=== PATIENT | male | born 1940 | race Caucasian/White ===

== ENCOUNTER 2023-10-05 18:29 | Emergency (ER) | payer OTHER, SELFPAY ==
[2023-10-05 18:32] VITALS: BP 134/81
[2023-10-05 18:57] LABS: % Basophils 0.9 % (0-2); % Eosinophils 2.1 % (0-6); % Immature Granulocytes 0.3 % (0-0.5); % Lymphocytes 24.9 % (20.5-51.1); % Monocytes 11.7 % (1.7-9.3); % Neutrophils 60.1 % (42.2-75.2); Absolute Basophils 0.1 10^3/uL (0-0.2); Absolute Eosinophils 0.2 10^3/uL (0-0.7); Absolute Lymphocytes 2.2 10^3/uL (1.2-3.4); Absolute Neutrophils 5.3 10^3/uL (1.4-6.5); Hematocrit 38.8 % (39.0-52.0); Hemoglobin 13.5 g/dL (13.0-18.0); Mean Corp Hgb Conc. 34.8 g/dL (33.0-37.0); Mean Corpuscular Hgb 31.5 pg (27.0-31.0); Mean Corpuscular Volume 90.4 fL (80.0-94.0); Mean Platelet Volume 8.7 fL (7.4-10.4); Nucleated Red Blood Cells % 0 % (-); Platelet Count 259 10^3/uL (130-400); Red Blood Cell Count 4.29 10^6/uL (4.70-6.10); Red Cell Dist. Width 13.3 % (11.5-14.5); White Blood Cell Count 8.9 10^3/uL (4.8-10.8)
[2023-10-05 19:14] LABS: ALT (SGPT) 13 U/L (0-50); AST (SGOT) 21 U/L (17-59); Alkaline Phosphatase 73 U/L (38-126); Blood Urea Nitrogen 26 mg/dl (9-20); Calcium 9.7 mg/dl (8.4-10.2); Carbon Dioxide 27 mmol/L (22-30); Chloride 101 mmol/L (98-107); Glucose 87 mg/dl (70-99); Potassium 4.4 mmol/L (3.5-5.1); Sodium 133 mmol/L (135-145); Total Bilirubin 0.8 mg/dl (0.2-1.3); eGFR > 60.00
[2023-10-05 19:26] LABS: COVID-19 Antigen Negative (Negative)
== END 2023-10-05 20:44 | disposition left against medical advice (07) ==
LOC: EMR 18:29
PROVIDERS: EMERGENCY PHYSICIAN Emergency Medicine
DX: R06.02 Shortness of breath (principal)
CPT/HCPCS: 71046; 80053; 85025; 87502; 87811; 93005

== ENCOUNTER 2024-01-30 19:37 | Inpatient (IN) | payer OTHER, SELFPAY ==
[2024-01-30] VITALS (11 sets, daily range): BP systolic 116–153; BP diastolic 80–96; PULSE 51–67; BMI 16.6
[2024-01-30 11:34] LABS: % Basophils 1.2 % (0-2); % Eosinophils 2.5 % (0-6); % Immature Granulocytes 0.2 % (0-0.5); % Monocytes 7.2 % (1.7-9.3); % Neutrophils 58.9 % (42.2-75.2); Absolute Basophils 0.1 10^3/uL (0-0.2); Absolute Eosinophils 0.2 10^3/uL (0-0.7); Absolute Lymphocytes 1.8 10^3/uL (1.2-3.4); Absolute Monocytes 0.4 10^3/uL (0.1-0.6); Absolute Neutrophils 3.5 10^3/uL (1.4-6.5); Hematocrit 39.6 % (39.0-52.0); Hemoglobin 13.9 g/dL (13.0-18.0); Mean Corp Hgb Conc. 35.1 g/dL (33.0-37.0); Mean Platelet Volume 9.1 fL (7.4-10.4); Nucleated Red Blood Cells % 0 % (-); Platelet Count 166 10^3/uL (130-400); Red Blood Cell Count 4.35 10^6/uL (4.70-6.10); Red Cell Dist. Width 14.6 % (11.5-14.5); White Blood Cell Count 5.9 10^3/uL (4.8-10.8)
[2024-01-30 11:52] LABS: ALT (SGPT) 24 U/L (0-50); AST (SGOT) 42 U/L (17-59); Albumin 4.3 g/dl (3.5-5.0); Alkaline Phosphatase 55 U/L (38-126); Blood Urea Nitrogen 24 mg/dl (9-20); Calcium 10.4 mg/dl (8.4-10.2); Carbon Dioxide 24 mmol/L (22-30); Chloride 103 mmol/L (98-107); Glucose 94 mg/dl (70-99); Potassium 4.1 mmol/L (3.5-5.1); Sodium 137 mmol/L (135-145); Total Bilirubin 0.9 mg/dl (0.2-1.3); Total Protein 6.9 g/dl (6.3-8.2); eGFR > 60.00
--- NOTE | 2024-01-30 14:09 | ED.GENMED ---
History of Present Illness
<Candi Escalante PA-C - Last Filed: 01/30/24 22:02>
General
Chief Complaint: Dehydration Symptoms
Source: patient
Exam Limitations: none
Time Seen by Provider: 01/30/24 13:18
Nursing documentation reviewed up to this point in time: agreed with
History of Present Illness
History of Present Illness:
83 y/oM
coming from home with
HLD, COPD, still smokes, hypothyroid
here with gnrealized weakness, dec appetite, dec oral intake, x 6 weeks
pt apparently fell 6 weeks ago while in the basement with son, backwards onto back, no head strike, was helped up and felt ok. but he has had a decline since. isn't really eating well, isn't drinking liquids, sleeps a lot, now is useing a cane.
when asked why he needs the cane he cannot quite articulate why. he initially said 'i can't walk without it' but isn't describing focal weakness or pain or dizziness or balance problems
he fell again 1 week ago outside and did hit his head then
no LOC
no thinners
followed by cards at [facility] but has never had any cardiac intervention/stress test
isn't sure why he has seen cards
pt has probably had some weight loss
says she decided to bring him today jung hansen really doesn't know what to do for him any mroe and is upset watching him stop eating/drinking well
pt has no back pain, fever, chills, burning with urination, vomiting, headache, dizziness, neck pain, chest pain
when asked if he feels SOB
he says he doesn't notice it
Past History
<Candi Escalnate PA-C - Last Filed: 01/30/24 22:02>
Past History
ED Past Medical History: COPD, Hypercholesterolemia, Hypothyroidism and Other (Nose bleed)
Patient has exhibited threatening behavior?: No
Social History
Tobacco: Smoker
Alcohol: None
Drug: None
Personal:
Living: with family
Employment: Retired
Review of Systems
<Candi Escalante PA-C - Last Filed: 01/30/24 22:02>
Review of Systems
Allergies reviewed?: Yes
All Other Systems: Not applicable
Phy Exam
<Candi Escalante PA-C - Last Filed: 01/30/24 22:02>
Physical Exam
Physical Exam:
GENERAL: Alert , in no apparent distress thin, appears malnourished
EYE: pupils equal and reactive
NECK: Supple
ENT: o/p clr, mmm.
CARDIAC: Irregular, bradycardic in the 50s
LUNGS: Mild dyspnea with very little exertion, no rales, no rhonchi, no wheezing, no cough
ABDOMEN: Soft, flat without focal tenderness, no r/g, no cvat, normal bowel sounds
NEUROLOGICAL: Alert and oriented, no focal neuro deficits, full strength and sensation distally, able to get up and ambulate with a cane, does not always seem to need to use a cane but picks it up and shuffles his gait
SKIN: Warm and dry, skin intact.
MUSCULOSKELETAL: No edema, well perfused. neg delbert's sign
PSYCH: Normal and appropriate interaction.
Course
<Candi Escalante PA-C - Last Filed: 01/30/24 22:02>
Orders/Labs/Results
Orders:
Orders
01/30/24 11:09
Electrocardiogram (*1) Urgent
Reason for Study: Fatigue / Weakness
EKG- Treatment ONCE
01/30/24 11:18
Complete Blood Count/With Diff Urgent
Comprehensive Metabolic Panel Urgent
Free T4 Urgent
TSH Reflex To Free T4 Urgent
Comment: TSH REFLEX ADDED ON BY FLOOR 2PM 7-8-24
01/30/24 14:05
CT Head W/o Iv Contrast Urgent
Comment:
Reason For Exam: fall 1 week ago, weak
0.9% Sodium Chloride 500 ml [Nss] 500 ml IV BOLUS
01/30/24 14:06
CR Chest - 2 Views Urgent
Comment:
Reason For Exam: copd, sob
01/30/24 14:07
Add On- LAB Urgent
Tests Added?: tsh reflex t4
01/30/24 14:20
NT-proBNP Urgent
Troponin I Urgent
01/30/24 Dinner
IDDSI 4 - Pureed
At Your Request: Limited Participation
01/30/24 15:38
Case Management Consult ONCE
Case Management Consult: Discharge Planning
Pt Eval And Treat Urgent
Activity Level: Ambulate
01/30/24 17:13
EKG [Electrocardiogram (*1)] Urgent
Reason for Study: Bradycardia / Tachycardia
01/30/24 17:14
EKG- Treatment ONCE
01/30/24 18:35
Admit/Transfer Patient As Directed
Co-Sign Provider:
Level of Care: Inpatient admission
Assign to:: Telemetry
Physician / Group: Hospitalist
Diagnosis: Weakness
Reason for Telemetry: Arrhythmia
Date to Stop Telemetry: 02/02/24
Time to Stop Telemetry: 11:00
Reason for Hospitalization: .
Expected length of stay greater than two midnights?: Yes
ELOS- Estimated Length of Stay in days: 3
I certify the patient meets the requirements for IP care: Yes
01/30/24 18:39
Code Status As Directed
Resuscitation Status: Full Code
01/30/24 19:08
Urinalysis Reflex To Culture Urgent
Date Specimen was Collected: 01/30/24
Time Specimen was Collected: 11:11
Urine Microscopic Reflex Cult Urgent
01/30/24 19:39
Dextrose 5%/0.9%Sodchl 1000 ml [D5/0.9% Sodium Chloride] 1,000 ml IV 100 mls/hr
Nicotine [Nicoderm Transdermal] 14 mg TRANSDERM DAILY
01/30/24 19:39
Consult Cardiology [CARDIOLOGY CONSULT] Routine
Consulting Provider: Audra Mortensen
Was physician already notified: Yes
Reason for consult: Bradycardia
Pt Eval And Treat Routine
Activity Level: Ambulate
Speech Therapy Eval & Treat Routine
DX Deep Vein Thrombosis Video Routine
01/30/24 20:00
Heparin 5,000 units SC Q12
01/31/24 06:00
Levothyroxine [Synthroid] 112 mcg PO DAILY @ 0600
02/02/24 11:00
DC Protocol for Telemetry ONCE
Abnormal Lab Results
01/30/24 01/30/24
11:18 19:08
RBC 4.35 L 10^6/uL
(4.70-6.10)
MCH 32.0 H pg
(27.0-31.0)
RDW 14.6 H %
(11.5-14.5)
BUN 24 H mg/dl
(9-20)
Calcium 10.4 H mg/dl
(8.4-10.2)
TSH (Reflex) 54.00 H uIU/ml
(0.47-4.68)
Free T4 0.41 L ng/dl
(0.78-2.19)
Urine Ketones Trace A
(Negative)
Urine Bilirubin 1+ A
(Negative)
Leukocyte Esterase Rfl Trace A
(Negative)
01/30/24 11:18
01/30/24 11:18
Vital Signs
Initial and Last Documented VS:
Initial Vital Signs
Temp Pulse Resp BP Pulse Ox
97.5 F 76 16 153/85 98
01/30/24 11:06 01/30/24 11:06 01/30/24 11:06 01/30/24 11:06 01/30/24 11:06
Last Documented Vital Signs
Temp Pulse Resp BP Pulse Ox
97.8 F 46 16 151/80 96
01/30/24 20:06 01/30/24 20:06 01/30/24 20:06 01/30/24 20:06 01/30/24 20:06
<Bryce Herrera MD - Last Filed: 01/30/24 22:08>
Orders/Labs/Results
Orders:
Orders
01/30/24 11:09
Electrocardiogram (*1) Urgent
Reason for Study: Fatigue / Weakness
EKG- Treatment ONCE
01/30/24 11:18
Complete Blood Count/With Diff Urgent
Comprehensive Metabolic Panel Urgent
Free T4 Urgent
TSH Reflex To Free T4 Urgent
Comment: TSH REFLEX ADDED ON BY FLOOR 2PM 01-30-24
01/30/24 14:05
CT Head W/o Iv Contrast Urgent
Comment:
Reason For Exam: fall 1 week ago, weak
0.9% Sodium Chloride 500 ml [Nss] 500 ml IV BOLUS
01/30/24 14:06
CR Chest - 2 Views Urgent
Comment:
Reason For Exam: copd, sob
01/30/24 14:07
Add On- LAB Urgent
Tests Added?: tsh reflex t4
01/30/24 14:20
NT-proBNP Urgent
Troponin I Urgent
01/30/24 Dinner
IDDSI 4 - Pureed
At Your Request: Limited Participation
01/30/24 15:38
Case Management Consult ONCE
Case Management Consult: Discharge Planning
Pt Eval And Treat Urgent
Activity Level: Ambulate
01/30/24 17:13
EKG [Electrocardiogram (*1)] Urgent
Reason for Study: Bradycardia / Tachycardia
01/30/24 17:14
EKG- Treatment ONCE
01/30/24 18:35
Admit/Transfer Patient As Directed
Co-Sign Provider:
Level of Care: Inpatient admission
Assign to:: Telemetry
Physician / Group: Hospitalist
Diagnosis: Weakness
Reason for Telemetry: Arrhythmia
Date to Stop Telemetry: 02/02/24
Time to Stop Telemetry: 11:00
Reason for Hospitalization: .
Expected length of stay greater than two midnights?: Yes
ELOS- Estimated Length of Stay in days: 3
I certify the patient meets the requirements for IP care: Yes
01/30/24 18:39
Code Status As Directed
Resuscitation Status: Full Code
01/30/24 19:08
Urinalysis Reflex To Culture Urgent
Date Specimen was Collected: 01/30/24
Time Specimen was Collected: 11:11
Urine Microscopic Reflex Cult Urgent
01/30/24 19:39
Dextrose 5%/0.9%Sodchl 1000 ml [D5/0.9% Sodium Chloride] 1,000 ml IV 100 mls/hr
Nicotine [Nicoderm Transdermal] 14 mg TRANSDERM DAILY
01/30/24 19:39
Consult Cardiology [CARDIOLOGY CONSULT] Routine
Consulting Provider: Audra Mortensen
Was physician already notified: Yes
Reason for consult: Bradycardia
Pt Eval And Treat Routine
Activity Level: Ambulate
Speech Therapy Eval & Treat Routine
DX Deep Vein Thrombosis Video Routine
01/30/24 20:00
Heparin 5,000 units SC Q12
01/31/24 06:00
Levothyroxine [Synthroid] 112 mcg PO DAILY @ 0600
02/02/24 11:00
DC Protocol for Telemetry ONCE
Abnormal Lab Results
01/30/24 01/30/24
11:18 19:08
RBC 4.35 L 10^6/uL
(4.70-6.10)
MCH 32.0 H pg
(27.0-31.0)
RDW 14.6 H %
(11.5-14.5)
BUN 24 H mg/dl
(9-20)
Calcium 10.4 H mg/dl
(8.4-10.2)
TSH (Reflex) 54.00 H uIU/ml
(0.47-4.68)
Free T4 0.41 L ng/dl
(0.78-2.19)
Urine Ketones Trace A
(Negative)
Urine Bilirubin 1+ A
(Negative)
Leukocyte Esterase Rfl Trace A
(Negative)
01/30/24 11:18
01/30/24 11:18
Vital Signs
Initial and Last Documented VS:
Initial Vital Signs
Temp Pulse Resp BP Pulse Ox
97.5 F 76 16 153/85 98
01/30/24 11:06 01/30/24 11:06 01/30/24 11:06 01/30/24 11:06 01/30/24 11:06
Last Documented Vital Signs
Temp Pulse Resp BP Pulse Ox
97.8 F 46 16 151/80 96
01/30/24 20:06 01/30/24 20:06 01/30/24 20:06 01/30/24 20:06 01/30/24 20:06
<Candi Escalante PA-C - Last Filed: 01/30/24 22:02>
MDM/Problems Addressed
Differential Diagnosis Includes:
symptomatic bradycardia, hypothyroid, generalized wekaneass, uti, depression
MDM/Problems Addressed:
83 y/o M hypothyroid, copd, hld; says he is compliant with meds,, chronic dysphagia drinks liquisd only
5-6 weeks gen fatigue, 2 falls (turns out the 2nd one 1 week ago was syncope that he didn' tell me initially)
not drinking usual amout of fluids, sleeping more
hr 40s sinus qian 1st degree av block, normal bp
neuro itnact
ambulates with cane fairly well, no ataxia, no focal weakness
orthos slightly positive with HR elevation of 20 points with standing but pt wasn't symptomatic, mild BUn elevation; treated with IV fluids
i had pt eval and they had recommneded some home care
i was going to send home but while i was in with the patient, he had several minutes of his hr was in the 30s
TSH resulted at 54
it had previously been 1.5 in april, according to dr. niño his PCP whom i spoke to
; i spoke with endo who didn't think he was taking med appropriately and not to inc the dose becuase this was appropriate for his low weight; shipyard helper dr. mortensen also made aware, with the questionnable syncope history, he recommended the
patient should probably stay overnight for tele
pt agreeable
seen by ed attending dr. herrera
<Candi Escalante PA-C - Last Filed: 01/30/24 22:02>
*Critical Care Note
Total Time (30-74mins, 75-104mins- exclusive of procedures): Not Applicable
ED Attending Note
<Candi Escalante PA-C - Last Filed: 01/30/24 22:02>
-
Portions of this chart may have been created with voice recognition software.� Occasional wrong word or��sound alike� substitutions may have occurred due to the inherent limitations of voice recognition software.
<Bryce Herrera MD - Last Filed: 01/30/24 22:08>
ED Attending Note
Patient seen and examined by attending physician: Yes
ED Attending Note:
Patient with history of hypothyroidism on levothyroxine, presents ED for evaluation secondary to progressively worsening generalized weakness, which seems to have started after he fell in his driveway 2 weeks ago. Patient reports that he may have
passed out. Denies preceding palpitations, dizziness or shortness of breath. Denies previous history of syncope. In addition, per spouse, patient has had decreased appetite and poor intake, along with not drinking enough water at home. Spouse
feels as though patient may be dehydrated. Patient denies headache. Denies loss of sensation or weakness.
Physical Exam
General: no apparent distress, not acutely ill. afebrile. weak appearing
Head: nc/at. eomi
Neck: supple. no meningeal signs.
Heart: s1/s2 regular rate and rhythm, no murmur. equal radial pulses.
Lungs: no acute respiratory distress. clear bilaterally
Abdomen: normal bowel sounds. not tender.
Neuro: alert and oriented. no focal neurological deficits
Skin: no rash
Psychiatric: well kept. interactive and cooperative
Extremities: no edema. no calf tenderness.
History and exam concerning for dehydration, likely secondary from poor oral intake. Blood work is remarkable for increased TSH level as well as decreased free T4 level, which may be contributing to patient's bradycardia noted on the monitor.
Patient will be admitted for further evaluation and treatment, on telemetry, with continue IV hydration. Patient may require cardiology consultation, if bradycardia persists, as there is frequent episodes of bradycardia into the 30s and low 40s.
Discharge Plan
Departure
Patient Disposition: Admit
Date of Disposition: 01/30/24
Time of Disposition: 17:42
Admit to: Telemetry
Presentation/result/management discussed w/ accepting MD/DO: Hospitalist
Condition: Fair
Covid-19: Not Applicable
Discharge Problem:
Weakness, Syncope, Symptomatic bradycardia, Hypothyroid
Interventions
Interventions:
*Risk Screen - Suicide Last Done: 01/30/24 13:36
*General Assessment Last Done: 01/30/24 13:36
*Neglect/Abuse Screening Last Done: 01/30/24 13:36
*ED COVID-19 Vaccine History Last Done: 01/30/24 13:36
*Nursing Disposition Last Done: 01/30/24 19:26
ED- Cardiac Assessment Last Done: 01/30/24 13:41
ED- Neurological Assessment Last Done: 01/30/24 13:41
ED- Pulmonary Assessment Last Done: 01/30/24 13:41
Discharge Date and Time
Discharge Date/Time: 01/30/24 19:27
[2024-01-30 14:55] LABS: NT-proBNP 345 pg/ml; Troponin I < 0.012 ng/ml
[2024-01-30] MEDS: NSS 500 IV (14:55)
--- NOTE | 2024-01-30 16:34 | CM ---
Addendum entered by Candice Sims 01/30/24 17:12:
Patient chose [facility]. Bedside RN and PAValentina updated.
Original Note:
CM reviewed chart. Introduced self and role to patient and . Spoke with patient and at bedside. PT at bedside evaluating patient. PT recommending [facility]. Patient and agreeable to this.
shared patient has been declining for 6 weeks, after a fall. He has now been needing to utilize a cane for the last 2 weeks.
Referrals placed to [facility] and [facility].
[2024-01-30 17:07] LABS: Free T4 0.41 ng/dl (0.78-2.19)
--- NOTE | 2024-01-30 17:56 | HPS.HSE ---
Family Physician
-
Family Physician: Robyn Saunders
Chief Complaint
-
Weakness for a few weeks duration
History of Present Illness
83 years old male came from home. Patient is accompanied by his . He reported weakness and declining health at home. Per , weakness was going on for more than 2 weeks. She could not get appointment with primary care physician and
brought him to the hospital. Patient has history of fall 2 weeks ago, was reported as syncopal episode but he denied loss of consciousness. He sustained a cut in his hand from it. He described it as loss of control in the driveway and falling but
he later was able to get up and go back inside the house.
Patient has a chronic dysphagia on a pur�ed diet. Diminished intake. His TSH was elevated and patient said he might have skipped doses.
Primary care doctor was contacted and reported normal TSH recently but possibility of missing doses.
Medical History
Past Medical History
Past Medical History: Reports Other (Hypothyroidism, history of hyperlipidemia, COPD, chronic dysphagia)
Past Surgical History: Reports Other (No recent major surgery)
Social History
Tobacco: Smoker (Smokes 3 to 4 cigarettes a day)
Alcohol: None
Personal:
Living: With Family
Employment: Retired
Family History
Family History: Other (His father had same dysphagia problem)
Allergies / Home Medications
Allergies reflects when Allergies were last updated in [employer].
Home Medications with original date entered in [employer]
Allergy/Medication List:
Allergies
Allergy/AdvReac Type Severity Reaction Status Date / Time
Sulfa (Sulfonamide Allergy childhood Verified 01/30/24 11:08
Antibiotics)
Home Medications
fluticasone fur. 100 mcg-umeclid 62.5 mcg-vilant 25 mcg inhalat.powder (Trelegy Ellipta) 1 inh inhalation R DAILY 01/30/24
levothyroxine 112 mcg tablet 112 mcg PO DAILY 01/30/24
Review of Systems
-
History Source: Patient
A 12 point ROS was completed and negative except as noted: Yes
Constitutional: Reports Fatigue; Denies Fever or Chills
EENT: Denies Sore Throat
Respiratory: Denies Trouble Breathing
Cardiac: Denies Chest Pain
Abdomen/GI: Reports Constipated and Anorexia; Denies Abdominal Pain
: Denies Dysuria or Frequency
Musculoskeletal: Denies Joint Pain or Joint Swelling
Neurological: Reports Weakness
Hematologic/Lymphatic: Denies Bruising
Psych: Reports Calm; Denies Panic Disorder
Physical Exam
Vital Signs
Vital Signs
Temp Pulse Resp BP Pulse Ox
97.5 F 45 17 133/85 96
01/30/24 11:06 01/30/24 17:15 01/30/24 17:15 01/30/24 16:07 01/30/24 17:15
Physical Exam
General: No Apparent Distress, Comfortable and Appears Chronically Ill
HEENT: Anicteric and Moist mucous membranes
Respiratory: Decreased Breath Sounds
Cardiac: S1/S2 and Bradycardia
GI: Soft, Non Tender and Non Distended
Rectal: No Maroon Stools
Genito-urinary: No costovertebral tender
Musculoskeletal: No Clubbing, No Cyanosis and No Edema
Skin: No Jaundice
Neuro: AO x 3
Psych: Calm
Laboratory Results
-
01/30/24 11:18
01/30/24 11:18
Laboratory Results
Total Bilirubin 0.9 mg/dl (0.2-1.3) 01/30/24 11:18
AST 42 U/L (17-59) 01/30/24 11:18
ALT 24 U/L (0-50) 01/30/24 11:18
Alkaline Phosphatase 55 U/L (38-126) 01/30/24 11:18
Troponin I < 0.012 ng/ml 01/30/24 14:20
Impression/Plan
-
83 years old male presented with history of failure to thrive, progressive weakness
# Generalized weakness/progressive weakness with mobility dysfunction/failure to thrive over the last few weeks/months
No acute decline but progressive decline
Differential diagnosis is broad. No fever or pain issue. Patient was ability to walk independently over the last few weeks. History of progressive dysphagia, takes pur�ed/liquid diet at home but currently he is reporting anorexia.
Scan of the head showed moderate small vessel disease with moderate atrophy, no acute intracranial abnormality.
# Sinus bradycardia.
Admit to telemetry
Generally he is asymptomatic with good blood pressure. I suspect a chronic issue.
Patient sees [facility]. No chest pain. Negative troponin. EKG sinus bradycardia first-degree AV block /Right bundle branch block
Chest x-ray no active disease.
Will try to get records from primary sound tester.
This could be precipitated by metabolic abnormality with high TSH and hypothyroidism
Will place patient back on Synthroid and monitor on telemetry. He is not on antiarrhythmic/tim blockade agents
Consult cardiology, appreciate help
# Hypothyroidism, uncontrolled. Possibility of missing doses. Will resume Synthroid.
Patient was not taking his Synthroid on empty stomach.
# Chronic dysphagia
Family history of dysphagia/esophageal motility disorder
Patient was pursuing testing but he declined further testing. He is on pur�ed diet with declining appetite and intake
Will consult speech therapist.
Patient is not interested in doing further GI workup or testing
# Cachexia, severe protein calorie malnutrition. Patient showing signs of muscle atrophy with temporal wasting
Consult electrical equipment technician
Consult PT/OT
# History of tobacco use, he is on Trelegy, possible COPD
Will do nicotine patch
# CODE STATUS, patient wants to remain full code
Total time spent to see the patient, examine the patient, review data and lab results, and discuss the treatment plan with patient, his , ER doctor, and nurse around 75 minutes
[2024-01-30 19:16] LABS: Urine Albumin Trace (Neg - Trace); Urine Bilirubin 1+ (Negative); Urine Character Clear (Clear); Urine Color Yellow; Urine Glucose Negative (Negative); Urine Ketone Trace (Negative); Urine Leukocyte Trace (Negative); Urine Nitrite Negative (Negative); Urine Occult Blood Negative (Negative); Urine Urobilinogen 1+ (Neg - 1+)
[2024-01-30 20:29] LABS: Urine Calcium Oxalate Crystals Present
[2024-01-30 20:30] LABS: Urine Mucus Moderate; Urine Red Blood Cell 0-2 /HPF (0-2)
[2024-01-30] MEDS: D5/0.9% SODIUM CHLORIDE 1000 IV (20:33)
[2024-01-30] MEDS: NICODERM TRANSDERMAL TRANSDERM ×2 (20:34→20:39)
[2024-01-30] MEDS: HEPARIN 5000 UNITS SC (20:34)
[2024-01-31 03:36] VITALS: BP 133/80
[2024-01-31] MEDS: SYNTHROID 112 MCG PO (05:28)
[2024-01-31 07:38] VITALS: BP 143/78
--- NOTE | 2024-01-31 08:39 | CON.CAR ---
Addendum entered and electronically signed by Clayton Guerra DO 01/31/24 12:49:
I saw and examined the patient.
The Machine [employer] Etcher's note was reviewed and I agree with the note.
Comment:
Plan:
Bradycardia may be exacerbated by his hypothyroidism. Continue to correct hypothyroidism and monitor heart rate.
May consider an outpatient monitor.
Check echocardiogram to evaluate for structural heart disease. Last echo from 2020.
Records received from [facility].
Continue to monitor orthostatic vital signs which have been negative.
No indication for PPM at this time
HPI: Patient came to [facility] yesterday with generalized weakness and cardiology has been consulted for sinus bradycardia. Patient says that his brought him in because he has been weak for weeks and he doesn't want to eat. Patient reports a h/o
trouble swallowing and that he has always been a thin man, but has lost more weight recently. He says that he cannot eat solid food and that his purees food for him. His BMI is 16.6 and weight is down 10-15 lbs in the last 2 years. Patient says
that his father had a similar problem with swallowing and lost weight as he got older and patient's daughter is now having similar problems. Patient reports attempting a work-up for muscular disorder years ago, but he became frustrated and walked
out without completing testing. Since then patient has been on the pureed diet. 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 Malin at [facility]. He had a echo as noted above. He
wore a CardioNet monitor in 2020 as well that showed sinus rhythm, sinus bradycardia and PACs, but no high degree block or pauses. 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
64. He does not take any AV tim blockers. Patient fell at home 6 weeks ago and since then has been failing. No reported syncope, but generally weak. He also says he has no appetite and has lost more weight. brought patient to [facility] yesterday
because she felt he was failing. In [facility] his TSH was high and free T4 was low, he reports missing doses of levothyroxine and when he does take a dose of levothyroxine he takes it with food.
Original Note:
Consultation
Consultation Request
Date/Time Consultation Requested: 01/30/24 at 1939
Date/Time Consultation Performed: 01/31/24 at 0839
Requesting Provider: Dr. Corey
Performing Provider: Dr. Guerra
Reason for Consultation: Bradycardia
Medical History
-
History of Present Illness:
Patient came to [facility] yesterday with generalized weakness and cardiology has been consulted for sinus bradycardia. Patient says that his brought him in because he has been weak for weeks and he doesn't want to eat. Patient reports a h/o trouble
swallowing and that he has always been a thin man, but has lost more weight recently. He says that he cannot eat solid food and that his purees food for him. His BMI is 16.6 and weight is down 10-15 lbs in the last 2 years. Patient says that
his father had a similar problem with swallowing and lost weight as he got older and patient's daughter is now having similar problems. Patient reports attempting a work-up for muscular disorder years ago, but he became frustrated and walked out
without completing testing. Since then patient has been on the pureed diet. 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 Malin at [facility]. He had a echo as noted above. He wore
a CardioNet monitor in 2020 as well that showed sinus rhythm, sinus bradycardia and PACs, but no high degree block or pauses. 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 He
does not take any AV tim blockers. Patient fell at home 6 weeks ago and since then has been failing. No reported syncope, but generally weak. He also says he has no appetite and has lost more weight. brought patient to [facility] yesterday because
she felt he was failing. In [facility] his TSH was high and free T4 was low, he reports missing doses of levothyroxine and when he does take a dose of levothyroxine he takes it with food.
PMH:
Sinus bradycardia
First degree AVB
LAFB
RBBB
h/o syncope 2020
Hypothyroid
Past Medical History
Past Medical History: Other (in HPI)
Past Surgical History: Other (hernia repair)
Social History
Tobacco: Smoker
Alcohol: None
Drug: None
Personal:
Living: With Family
Family History
Family History: Other (nonspecific, undiagnosed muscle disease with symptoms of dysphagia and generalized weakness in father and now his daughter, patient walked out on work-up years ago)
Allergies / Home Medications
Allergy/AdvReac Type Severity Reaction Status Date / Time
Sulfa (Sulfonamide Allergy childhood Verified 01/30/24 11:08
Antibiotics)
�Medication �Instructions �Recorded �Confirmed �Type
fluticasone fur. 100 mcg-umeclid 1 inh inhalation R DAILY 01/30/24 01/30/24 History
62.5 mcg-vilant 25 mcg
inhalat.powder (Trelegy Ellipta)
levothyroxine 112 mcg tablet 112 mcg PO DAILY 01/30/24 01/30/24 History
Review of Systems
-
History Source: Patient
All other systems: Negative unless noted
Physical Exam
Vital Signs
Temp Pulse Resp BP Pulse Ox
98.4 F 54 28 143/78 97
01/31/24 07:38 01/31/24 07:38 01/31/24 07:38 01/31/24 07:38 01/31/24 07:38
GEN: NAD. AAOx3, frail appearing and cachectic
HEENT: EOMI, MMM
LUNGS: CTA B/L, no wheezes or rales
CV: Reg, slow, S1/S2, no murmur
ABD: soft, BS+, NT, ND
EXT: No clubbing, cyanosis, lesions or edema B/L
NEURO: Gross non-focal
SKIN: Warm, dry and pink. No rash
Lab Results
01/30/24 11:18
01/30/24 11:18
Troponin I < 0.012 ng/ml 01/30/24 14:20
Oxc-H-Bncsxbwhlqm Pept 345 pg/ml 01/30/24 14:20
Impression / Plan
-
PCP: Dr. Robyn Saunders in [place]
Cardiology: Dr. Malin at [facility] [phone]
Impression:
Generalized weakness, weight loss and failure to thrive
Sinus bradycardia
First degree AVB
LAFB
RBBB
h/o syncope 2020
Hypothyroid, undertreated
Echo 2020: normal EF, mild TR, mildly dilated aorta
Plan:
-Patient came to [facility] yesterday with generalized weakness and cardiology has been consulted for sinus bradycardia. Patient says that his brought him in because he has been weak for weeks and he doesn't want to eat. Patient reports a h/o trouble
swallowing and that he has always been a thin man, but has lost more weight recently. He says that he cannot eat solid food and that his purees food for him. His BMI is 16.6 and weight is down 10-15 lbs in the last 2 years. Patient says that
his father had a similar problem with swallowing and lost weight as he got older and patient's daughter is now having similar problems. Patient reports attempting a work-up for muscular disorder years ago, but he became frustrated and walked out
without completing testing. Since then patient has been on the pureed diet. 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 Malin at [facility]. He had a echo as noted above. He wore
a CardioNet monitor in 2020 as well that showed sinus rhythm, sinus bradycardia and PACs, but no high degree block or pauses. 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 He
does not take any AV tim blockers. Patient fell at home 6 weeks ago and since then has been failing. No reported syncope, but generally weak. He also says he has no appetite and has lost more weight. brought patient to [facility] yesterday because
she felt he was failing. [facility] his TSH was high and free T4 was low, he reports missing doses of levothyroxine and when he does take a dose of levothyroxine he takes it with food.
-Called primary hourly sign language interpreter for records, records received and reviewed as above. Patient with known first degree AVB, RBBB and LAFB. He last wore a CardioNet monitor in 2020 and no pauses or high degree heart block at that time. Patient does not
take any AV tim blockers. ECG and tele reviewed by me and patient with sinus bradycardia and PACs, no high grade block and no significant pauses. Suspect bradycardia is chronic, but perhaps acutely worse with undertreated hypothyroidism.
-Hospitalist attending is addressing hypothyroidism and patient has been educated on the need to take levothyroxine on an empty stomach.
-Check echo, last echo was 2020.
-He is not orthostatic by VS
-No indication for PPM.
[2024-01-31] MEDS: HEPARIN 5000 UNITS SC ×2 (09:00→19:09)
[2024-01-31] MEDS: NICODERM TRANSDERMAL 14 MG TRANSDERM (09:00)
[2024-01-31] MEDS: D5/0.9% SODIUM CHLORIDE 1000 IV (09:24)
--- NOTE | 2024-01-31 09:45 | PTOTSP ---
ST Acute Care Evaluation
Pt currently presents with suspected moderately-severe oropharyngeal dysphagia of unknown origin. Pt has signifciant difficulties initiating swallows for both liquids and solids (more difficulties with solids than liquids). Pt also demonstrated
inconsistent airway protection with ingestion of liquids as illustrated by weak, wet coughing.
Recommendations:
- Continue with pureed solids, thin liquids, meds crushed in liquid or puree (pt preference).
- General aspiration precautions: HOB upright for ALL PO intake, small bites/sips, multiple swallows per trial, take breaks.
- VFSS for more information regarding extent of dysphagia.
- SPECIAL [employer]ENT [employer] will continue to follow and provide updated recommendations pending VFSS results.
--- NOTE | 2024-01-31 11:04 | W.PN.HOSP.TC ---
Today's Communication/Plan
-
f/w PT/OT/ Speech recommendations
c/w oral Synthroid
Monitor on telemetry, get records form [facility]
Assessment / Plan
Assessment / Plan
Physical Exam
General: No Apparent Distress, Comfortable and Appears Chronically Ill
HEENT: Anicteric and Moist mucous membranes
Respiratory: Decreased Breath Sounds
Cardiac: S1/S2 and Bradycardia
GI: Soft, Non Tender and Non Distended
Rectal: No Maroon Stools
Genito-urinary: No costovertebral tender
Musculoskeletal: No Clubbing, No Cyanosis and No Edema
Skin: No Jaundice
Neuro: AO x 3
Psych: Calm
83 years old male presented with history of failure to thrive, progressive weakness
# Generalized weakness/progressive weakness with mobility dysfunction/failure to thrive over the last few weeks/months
No acute decline but progressive decline
Differential diagnosis is broad. No fever or pain issue. Patient was ability to walk independently over the last few weeks. History of progressive dysphagia, takes pur�ed/liquid diet at home but currently he is reporting anorexia.
D/w Speech therapist, will do video swallow
Scan of the head showed moderate small vessel disease with moderate atrophy, no acute intracranial abnormality.
# Sinus bradycardia.
Stable HR around 40s
Generally he is asymptomatic with good blood pressure. I suspect a chronic issue.
Patient sees [facility]. No chest pain. Negative troponin. EKG sinus bradycardia first-degree AV block /Right bundle branch block
Chest x-ray no active disease.
Will try to get records from primary salon coordinator.
This could be precipitated by metabolic abnormality with high TSH and hypothyroidism
Placed patient back on Synthroid and monitor on telemetry. He is not on antiarrhythmic/tim blockade agents
Consult cardiology, appreciate help
# Hypothyroidism, uncontrolled. Possibility of missing doses. Will resume Synthroid.
Patient was not taking his Synthroid on empty stomach.
# Chronic dysphagia
Family history of dysphagia/esophageal motility disorder
Patient was pursuing testing but he declined further testing. He is on pur�ed diet with declining appetite and intake
For video swallow
Patient is not interested in doing further GI workup or testing
# Cachexia, severe protein calorie malnutrition. Patient showing signs of muscle atrophy with temporal wasting
Consulted head of data
Consulted PT/OT
# History of tobacco use, he is on Trelegy, possible COPD
nicotine patch
# CODE STATUS, patient wants to remain full code
Total time spent to see the patient, examine the patient, review data and lab results, and discuss the treatment plan with patient, cardiology and nurse around 55 minutes
Anticipated Discharge: 24 - 48 hours
Subjective/Interval History
-
Date of Service: January 31, 2024
No complaints
he asked if he could go home
Objective Data
-
Vital Signs:
Vital Signs
Temp Pulse Resp BP Pulse Ox
98.4 F 54 28 143/78 97
01/31/24 07:38 01/31/24 07:38 01/31/24 07:38 01/31/24 07:38 01/31/24 07:38
[2024-01-31 11:29] VITALS: BP 118/75
--- NOTE | 2024-01-31 14:11 | PTOTSP ---
Video Swallow Study
Study limited as patient accepted very small bolus sizes (1/8 tsp) with thicker consistencies (moderately thick, pudding thick, solids) due to reported fear of difficulty swallowing. Repetitive lingual rocking observed with delayed onset of what
were then functional anterior to posterior oral transfers. Pharyngeal swallow was functional. No aspiration occurred. Esophageal sweep revealed mild distal esophageal retention.
Recommend:
1. Continue diet as ordered (L4 Puree, L0 Thin Liquids)
2. Medications - crushed in puree
3. Strategies: upright to 90 degrees, small sips/bites
4. Oral care 3x daily
5. Dysphagia tx at the acute care level (to trial advanced solids with POULTRY BUYER).
6. Consider further medical work up as to etiology of dysphagia (i.e., gastroenterology consult, neuropsych consult).
7. Dietitian consult warranted.
--- NOTE | 2024-01-31 14:56 | CM ---
Chart reviewed and patient has been set up with [facility], plan is to home with spouse and [facility] visiting nurses
[place]
[phone]

Plan; Home with spouse and [facility] visiting nurses.
[2024-01-31 15:45] VITALS: BP 98/52; BMI 16.6
[2024-01-31 19:17] VITALS: BP 105/67
[2024-01-31 23:08] VITALS: BP 109/70
--- NOTE | 2024-02-01 00:26 | PTCARENOTE ---
Patient`s heart rate in 40`s, noted to briefly drop to 33-34 bpm. Heart rate did not sustain and returned to baseline HR in 40`s. Patient sleeping at this time and not symptomatic. call worker person WEDDING PLANNER made aware. Cardio consult already in place.
--- NOTE | 2024-02-01 02:48 | PTCARENOTE ---
Patient`s heart rate noted to be in the low 40`s, and dropping into the 30`s, but returns to 40`s. Pause noted on monitor is less than 2 seconds. Patient sleeping; however, patient denies symptoms when awoken. CREW BOAT OPERATOR Angelica made aware. strip placed on
chart. No new orders.
[2024-02-01 03:15] VITALS: BP 97/61
[2024-02-01] MEDS: SYNTHROID 112 MCG PO (05:35)
[2024-02-01 07:03] LABS: Hematocrit 38.7 % (39.0-52.0); Hemoglobin 13.2 g/dL (13.0-18.0); Mean Corp Hgb Conc. 34.1 g/dL (33.0-37.0); Mean Corpuscular Hgb 31.1 pg (27.0-31.0); Mean Corpuscular Volume 91.3 fL (80.0-94.0); Mean Platelet Volume 9.4 fL (7.4-10.4); Platelet Count 154 10^3/uL (130-400); Red Blood Cell Count 4.24 10^6/uL (4.70-6.10); Red Cell Dist. Width 14.6 % (11.5-14.5)
[2024-02-01 07:35] VITALS: BP 119/66
[2024-02-01 08:04] LABS: Blood Urea Nitrogen 21 mg/dl (9-20); Calcium 9.8 mg/dl (8.4-10.2); Carbon Dioxide 25 mmol/L (22-30); Chloride 106 mmol/L (98-107); Estimated Creatinine Clearance 47 ml/min; Glucose 74 mg/dl (70-99); Potassium 4.2 mmol/L (3.5-5.1); Sodium 136 mmol/L (135-145); eGFR > 60.00
[2024-02-01] MEDS: HEPARIN 5000 UNITS SC (08:29)
[2024-02-01] MEDS: NICODERM TRANSDERMAL 14 MG TRANSDERM (08:30)
--- NOTE | 2024-02-01 09:45 | W.DCSUMMARY ---
Discharge Summary
Discharge Data
Date of Admission: 01/30/24
Date of Discharge: 02/01/24
-
Pending Results: No
Hospital Course
83 years old male who presented with weakness and worsening gait dysfunction. Patient was found to have bradycardia on admission. Patient had history of swallowing difficulty and gait dysfunction. Patient and his reported that patient was
on mechanical soft/pur�ed diet home for long time. Patient followed with gastroenterology in the past. He was found to have sinus bradycardia. Cardiology was consulted. Echocardiogram showed normal left ventricular ejection fraction with no
significant valvular disease, dilated ascending aorta at 4.2 cm. Patient followed with [facility] and he wanted to continue seeing his defensive line coach upon discharge. Photographer Helper recommended to continue to treat hypothyroidism. Patient was
counseled regarding taking his medication Synthroid regularly and on empty stomach. His thyroid-stimulating hormone was elevated and his Synthroid dose was slightly increased. Patient was advised to follow with his family doctor to repeat thyroid
hormone level in 4 to 6 weeks. He did not have chest pain or hypotension. He was evaluated by physical therapy and recommended home health services. Patient was seen by speech therapist and he had video swallow. Speech therapist recommended to
continue thin liquids and pur�ed diet and to crush medications if possible. Dietitian was consulted. Patient remained hemodynamically stable and was discharged home in a stable condition.
Physical Exam
General: No Apparent Distress, Comfortable and Appears Chronically Ill
HEENT: Anicteric and Moist mucous membranes
Respiratory: Decreased Breath Sounds
Cardiac: S1/S2 and Bradycardia
GI: Soft, Non Tender and Non Distended
Rectal: No Maroon Stools
Genito-urinary: No costovertebral tender
Musculoskeletal: No Clubbing, No Cyanosis and No Edema
Skin: No Jaundice
Neuro: AO x 3
Psych: Calm
Total discharge time spent to see the patient, examine the patient, review data and lab results, and discuss the discharge plan with patient, , nurse around 65 minutes
Discharge Plan
-
Patient Disposition: Home with Home Care
Discharge Diagnosis/Procedures: Sinus bradycardia
Gait dysfunction
Hypothyroidism, we increased dose of Synthroid ( take it every morning on empty stomach).
Diet: Grind all food
Referrals:
Robyn Saunders MD [Family Provider] - in one to two weeks
Prescriptions:
New
levothyroxine [Synthroid] 125 mcg tablet
125 mcg PO DAILY Qty: 30 0RF
Continued
Trelegy Ellipta 100-62.5-25 mcg blister with device
1 inh INHALATION R DAILY
Discontinued
levothyroxine 112 mcg tablet
112 mcg PO DAILY
Discharge Orders:
Discharge Patient (As Directed); Ordered 02/01/24
Ordered By: Jeannette Corey
Discharge Date and Time
Print Language: FAROESE
--- NOTE | 2024-02-01 10:38 | W.PN.CARDCBS ---
Addendum entered and electronically signed by Ishan Tilley MD 02/01/24 10:57:
I saw and examined the patient.
The MATERIAL SCHEDULER or PA's note was reviewed and I agree with the note.
Comment: General: Well developed, well nourished in NAD.
Neck: Supple, no JVD, HJR, carotids +2 B/L, no bruits bilaterally.
Heart: Non displaced PMI, RRR, no murmurs, No S3, S4, no rubs.
Lungs: Scattered rhonchi
Extremities: No clubbing, cyanosis or edema bilaterally.
Neuro: Grossly nonfocal, awake, alert and oriented x3.
Stable cardiology status. No indication for pacer implant. Will sign off, call with questions. Follow-up with [facility]
Original Note:
Today's Communication / Plan
-
No indication for PPM
Impression / Plan
-
PCP: Dr. Robyn Saunders in [place]
Cardiology: Dr. Malin at [facility] [phone]
Impression:
Generalized weakness, weight loss and failure to thrive
Sinus bradycardia
First degree AVB
LAFB
RBBB
h/o syncope 2020
Hypothyroid, undertreated
Echo 2020: normal EF, mild TR, mildly dilated aorta
Echo 01/31/24: EF 64%, no WMA, no significant valve disease, ascending aorta 4.2 cm
Plan:
-Tele reviewed by me 02/01/24 and remains in sinus bradycardia with PACs, but no high grade heart block and no significant pauses. HR increases with activity
-Patient with known first degree AVB, RBBB and LAFB. He last wore a CardioNet monitor in 2020 and no pauses or high degree heart block at that time. Patient does not take any AV tim blockers. Suspect bradycardia is chronic, but perhaps acutely
worse with undertreated hypothyroidism.
-No indication for PPM
-Echo noted above showed normal EF and ascending aorta 4.2 cm, was previously described as mildly dilated by records that were requested and reviewed by me
-Hospitalist attending is addressing hypothyroidism and patient has been educated on the need to take levothyroxine on an empty stomach.
-Patient will follow up with his primary driftman, faxed records for continuity
HPI: Patient came to [facility] yesterday with generalized weakness and cardiology has been consulted for sinus bradycardia. Patient says that his brought him in because he has been weak for weeks and he doesn't want to eat. Patient reports a h/o
trouble swallowing and that he has always been a thin man, but has lost more weight recently. He says that he cannot eat solid food and that his purees food for him. His BMI is 16.6 and weight is down 10-15 lbs in the last 2 years. Patient says
that his father had a similar problem with swallowing and lost weight as he got older and patient's daughter is now having similar problems. Patient reports attempting a work-up for muscular disorder years ago, but he became frustrated and walked
out without completing testing. Since then patient has been on the pureed diet. 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 Malin at [facility]. He had a echo as noted above. He
wore a CardioNet monitor in 2020 as well that showed sinus rhythm, sinus bradycardia and PACs, but no high degree block or pauses. 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
64. He does not take any AV tim blockers. Patient fell at home 6 weeks ago and since then has been failing. No reported syncope, but generally weak. He also says he has no appetite and has lost more weight. brought patient to [facility] yesterday
because she felt he was failing. In [facility] his TSH was high and free T4 was low, he reports missing doses of levothyroxine and when he does take a dose of levothyroxine he takes it with food.
Progress Note - Axminster Weaver
Subjective
Date of Service: February 01, 2024
He says he feels at his baseline
Objective
Labs:
02/01/24 06:16
02/01/24 06:16
Labs
Hgb 13.2 g/dL (13.0-18.0) 02/01/24 06:16
Hct 38.7 % (39.0-52.0) L 02/01/24 06:16
Plt Count 154 10^3/uL (130-400) 02/01/24 06:16
Sodium 136 mmol/L (135-145) 02/01/24 06:16
Potassium 4.2 mmol/L (3.5-5.1) 02/01/24 06:16
BUN 21 mg/dl (9-20) H 02/01/24 06:16
Creatinine 0.9 mg/dL (0.7-1.3) 02/01/24 06:16
Glucose 74 mg/dl (70-99) 02/01/24 06:16
Troponins
01/30/24
14:20
Troponin I < 0.012
Vital Signs and I&O:
Vital Signs
Temp Pulse Resp BP Pulse Ox
97.9 F 49 19 119/66 95
02/01/24 07:35 02/01/24 07:35 02/01/24 07:35 02/01/24 07:35 02/01/24 07:35
Vital Signs
Temp Pulse Resp BP Pulse Ox
97.9 F 49 19 119/66 95
02/01/24 07:35 02/01/24 07:35 02/01/24 07:35 02/01/24 07:35 02/01/24 07:35
Intake & Output
01/30/24 01/31/24 02/01/24 02/02/24
06:59 06:59 06:59 06:59
Intake Total 840 / 840
Balance 840 / 840
Physical Exam
Physical Exam
GEN: AAOx3
HEENT: EOMI, MMM
LUNGS: No wheezes
CV: Sinus bradycardia on tele
ABD: ND
EXT: No edema B/L
NEURO: Gross non-focal
SKIN: No rash
[2024-02-01 11:41] VITALS: BP 147/80
--- NOTE | 2024-02-01 12:52 | CM ---
met with patient who is stable for dc home with [facility].family to transport patient.
== END 2024-02-01 12:34 | disposition home health service (06) | DRG 643 ==
LOC: 4 WEST ACU 19:37
PROVIDERS: Emergency Medicine; Physician Assistant; ADMITTING PHYSICIAN Internal Medicine; EMERGENCY PHYSICIAN Emergency Medicine; FAMILY PHYSICIAN Internal Medicine; OTHER PHYSICIAN Nuclear Medicine Nuclear Cardiology
DX: E03.9 Hypothyroidism, unspecified (principal); E43 Unspecified severe protein-calorie malnutrition; R64 Cachexia; Z68.1 Body mass index [BMI] 19.9 or less, adult
CPT/HCPCS: 70450; 71046; 74230; 80048; 80053; 81003; 81015; 83880; 84439; 84443; 84484; 85025; 85027; 92610; 92611; 93005; 93306; 99285

== ENCOUNTER 2024-03-27 10:55 | Inpatient (IN) | payer OTHER, SELFPAY ==
[2024-03-22] VITALS (12 sets, daily range): BP systolic 93–124; BP diastolic 66–93; PULSE 56; O2SAT 96; BMI 16.3; BMI 15.7
--- NOTE | 2024-03-22 13:31 | ED.GENMED ---
History of Present Illness
General
Chief Complaint: Weakness
Source: patient
Time Seen by Provider: 03/22/24 13:22
History of Present Illness
History of Present Illness:
83yoM with a history of COPD recently started on PRN oxygen, hypothyroidism, and chronic dysphagia presenting for evaluation of generalized weakness. Patient was unable to get out of bed this morning so family called EMS. He currently lives at home
with his . He states he is typically able to get out of bed and ambulates with a walker/cane. Patient has no other complaints at this time. He denies any fevers, chills, vomiting, diarrhea, chest pain, shortness of breath, abdominal pain. He was
admitted last month for generalized weakness and ambulatory dysfunction.
Past History
Past History
ED Past Medical History: COPD, Hypercholesterolemia, Hypothyroidism and Other (Nose bleed)
Patient has exhibited threatening behavior?: No
Social History
Tobacco: Smoker
Alcohol: None
Drug: None
Personal:
Living: with family
Employment: Retired
Phy Exam
Physical Exam
Physical Exam:
Cachectic elderly male in no acute distress
General Physical Exam
General Presentation: no apparent distress
General age: appears stated age
General Skin: warm and dry
General Habitus: cachetic and elderly
General Mental: alert
Cardiovascular Exam
Cardiovascular Exam: regular rate/rhythm
Pulmonary Exam
Pulmonary Exam: no respiratory distress, no rales and decreased breath sounds
Gastrointestinal Exam
Gastrointestinal Exam: non tender, soft and non distended
Neurological Exam
Neurological Exam: alert
Skin Exam
Skin Exam: normal color and warm/dry
Psychiatric Exam
Psychiatric Exam: normal mood/affect
Course
Orders/Labs/Results
Orders:
Orders
03/22/24 13:34
Urinalysis Reflex To Culture Urgent
CR Chest - 2 Views Urgent
Comment:
Reason For Exam: Generalized weakness
03/22/24 13:37
Electrocardiogram (*1) Urgent
Reason for Study: Fatigue / Weakness
EKG- Treatment ONCE
03/22/24 13:44
Complete Blood Count/With Diff Urgent
Comprehensive Metabolic Panel Urgent
TSH Reflex To Free T4 Urgent
Troponin I Urgent
03/22/24 14:31
Pt Eval And Treat Urgent
Activity Level: Out of Bed- Ad Latha
03/22/24 14:49
Case Management Consult ONCE
Case Management Consult: Discharge Planning
03/22/24 15:14
0.9% Sodium Chloride 500 ml [Nss] 500 ml IV BOLUS
Abnormal Lab Results
03/22/24
13:44
RBC 3.93 L 10^6/uL
(4.70-6.10)
Hgb 12.7 L g/dL
(13.0-18.0)
Hct 35.3 L %
(39.0-52.0)
MCH 32.3 H pg
(27.0-31.0)
Absolute Neuts (auto) 8.1 H 10^3/uL
(1.4-6.5)
Absolute Lymphs (auto) 1.0 L 10^3/uL
(1.2-3.4)
Absolute Monos (auto) 0.7 H 10^3/uL
(0.1-0.6)
Neutrophils % 81.4 H %
(42.2-75.2)
Lymphocytes % 10.3 L %
(20.5-51.1)
BUN 33 H mg/dl
(9-20)
Calcium 10.3 H mg/dl
(8.4-10.2)
Total Bilirubin 1.5 H mg/dl
(0.2-1.3)
Total Protein 6.2 L g/dl
(6.3-8.2)
03/22/24 13:44
03/22/24 13:44
Vital Signs
Initial and Last Documented VS:
Initial Vital Signs
Temp Pulse Resp BP Pulse Ox
97.3 F 61 23 97/75 94
03/22/24 13:21 03/22/24 13:21 03/22/24 13:21 03/22/24 13:21 03/22/24 13:21
Last Documented Vital Signs
Temp Pulse Resp BP Pulse Ox
98.0 F 51 18 107/73 95
03/22/24 14:53 03/22/24 15:45 03/22/24 15:45 03/22/24 14:53 03/22/24 15:15
MDM/Problems Addressed
Differential Diagnosis Includes:
83yoM here with generalized weakness. He was unable to get out of bed today. Hx of COPD. He is cachectic but non-toxic. BP 97/75 on arrival. Remainder of vitals stable. Differential diagnosis includes but is not limited to: failure to thrive,
infection, dehydration
Initial ED plan: Check cardiac labs, TSH, UA, EKG, and CXR.
*EKG
Interpreted by ED Provider?: Yes
EKG Intrepretation Date: 03/22/24
Heart Rate: 69
Rate: normal
Rhythm: sinus
QRS Pattern: right bundle branch block
Ischemia: no ischemia
*Critical Care Note
Total Time (30-74mins, 75-104mins- exclusive of procedures): Not Applicable
Update Note
Update Note:
Labs overall unremarkable. EKG shows NSR with a RBBB which appears unchanged from prior. Troponin WNL. TSH normal. Family does not feel comfortable taking care of him at home. PT consulted who recommended rehab placement. Case management unable to
place patient today. He was admitted for further management.
ED Attending Note
-
Portions of this chart may have been created with voice recognition software.� Occasional wrong word or��sound alike� substitutions may have occurred due to the inherent limitations of voice recognition software.
Discharge Plan
Departure
Patient Disposition: Admit
Date of Disposition: 03/22/24
Time of Disposition: 17:01
Presentation/result/management discussed w/ accepting MD/DO: Hospitalist
Discharge Problem:
Generalized weakness, Failure to thrive
Prescriptions:
No Action
Trelegy Ellipta 100-62.5-25 mcg blister with device
1 inh INHALATION R DAILY
levothyroxine [Synthroid] 137 mcg Tablet
137 mcg PO DAILY
mirtazapine 7.5 mg Tablet
7.5 mg PO HS
Referrals:
Robyn Saunders MD [Family Provider] -
Interventions
Interventions:
*Risk Screen - Suicide Last Done: 03/22/24 13:21
*General Assessment Last Done: 03/22/24 13:21
*Neglect/Abuse Screening Last Done: 03/22/24 13:21
ED- Fall Risk Assessment Last Done: 03/22/24 13:33
*ED COVID-19 Vaccine History Last Done: 03/22/24 13:21
ED- Cardiac Assessment Last Done: 03/22/24 13:33
ED- Neurological Assessment Last Done: 03/22/24 13:33
ED- Pulmonary Assessment Last Done: 03/22/24 13:33
Discharge Date and Time
Print Language: SLOVENIAN
[2024-03-22 14:04] LABS: % Basophils 0.5 % (0-2); % Eosinophils 0.1 % (0-6); % Immature Granulocytes 0.3 % (0-0.5); % Lymphocytes 10.3 % (20.5-51.1); % Monocytes 7.4 % (1.7-9.3); % Neutrophils 81.4 % (42.2-75.2); Absolute Basophils 0.1 10^3/uL (0-0.2); Absolute Monocytes 0.7 10^3/uL (0.1-0.6); Absolute Neutrophils 8.1 10^3/uL (1.4-6.5); Hematocrit 35.3 % (39.0-52.0); Hemoglobin 12.7 g/dL (13.0-18.0); Mean Corpuscular Hgb 32.3 pg (27.0-31.0); Mean Corpuscular Volume 89.8 fL (80.0-94.0); Mean Platelet Volume 10.1 fL (7.4-10.4); Nucleated Red Blood Cells % 0 % (-); Platelet Count 149 10^3/uL (130-400); Red Blood Cell Count 3.93 10^6/uL (4.70-6.10); Red Cell Dist. Width 14.5 % (11.5-14.5); White Blood Cell Count 9.9 10^3/uL (4.8-10.8)
[2024-03-22 14:25] LABS: Troponin I < 0.012 ng/ml
[2024-03-22 14:29] LABS: ALT (SGPT) 17 U/L (0-50); AST (SGOT) 31 U/L (17-59); Alkaline Phosphatase 46 U/L (38-126); Blood Urea Nitrogen 33 mg/dl (9-20); Calcium 10.3 mg/dl (8.4-10.2); Carbon Dioxide 26 mmol/L (22-30); Chloride 104 mmol/L (98-107); Estimated Creatinine Clearance 42 ml/min; Glucose 91 mg/dl (70-99); Potassium 4.3 mmol/L (3.5-5.1); Sodium 137 mmol/L (135-145); Total Bilirubin 1.5 mg/dl (0.2-1.3); Total Protein 6.2 g/dl (6.3-8.2); eGFR > 60.00
[2024-03-22 14:59] LABS: TSH Reflex To Free T4 2.23 uIU/ml (0.47-4.68)
--- NOTE | 2024-03-22 15:13 | PHANOTE ---
med rec note- patient, spouse and family do not know patient medication. all there answers are I don't know, they have a medical discharge paperwork from an [employer] system but missing pages 2-4.
[2024-03-22] MEDS: NSS 500 IV (15:21)
--- NOTE | 2024-03-22 15:46 | CM ---
Addendum entered by Candice Sims 03/22/24 16:25:
Referrals sent to:
1. [facility]
2. [facility] (Grandfather was a Kai)
3. [facility]
4. [facility]
Original Note:
CM consult placed for placement. Chart reviewed. CM introduced self and role.
, daughter, son and patient (on litter) in room. Daughter requested a list of facilities in the [facility].Daughter spoke with CM outside of room and said that patient's PCP had talked about hospice a few months and estimated that patient
would most likely have less than 6 months to live. Daughter wants to have the 'hospice' conversation but isn't sure how to present it to her mother. She wants her mother to be informed about how patient could be on hospice in facility vs. at home.
CM asked if daughter wanted our home hospice rn to come see family (or and daughter) and have a discussion.
Daughter would like to think on it until CM comes back with list. Family was educated on finding a list of SNFs in their area by going to Medicare.gov.
--- NOTE | 2024-03-22 18:12 | HPS.HSE ---
Addendum entered and electronically signed by Robert Orosco MD 03/22/24 18:30:
I saw and examined the patient.
The GENERAL CLERK or PA's note was reviewed and I agree with the note.
Comment:
Male with history of advanced COPD on home oxygen, hypothyroidism, chronic dysphagia came to the hospital with worsening weakness. Patient denies any pain. Denies any nausea, vomiting, diarrhea, constipation. History was also taken by spouse and
daughter at bedside. Patient has been slowly declining and has not been eating much. Recently started on mirtazapine. Hold mirtazapine due to weakness. PT/OT recommending SNF. it systems manager involved. Family also is leaning towards palliative
care if patient does not improve with physical therapy. Currently still smoking about 6 cigarettes a day. Start nicotine patch. OBS.
General: Comfortable and Conversant
HEENT: Anicteric, Moist mucous membranes and Oxygen (Nasal Cannula)
Respiratory: Clear and Non Labored Respirations
Cardiac: S1/S2 and Regular Rhythm
GI: Soft and Non Tender
Rectal: Deferred by Provider
Musculoskeletal: No Clubbing, No Cyanosis and No Edema
Skin: Warm and Dry
Neuro: Awake, Alert and Nonfocal/grossly intact
Psych: Calm and Other (Flat Affect)
Original Note:
Family Physician
-
Family Physician: Robyn Saunders
Chief Complaint
-
Weakness
History of Present Illness
Patient is a 83 yo male with history of COPD on 2.5L home O2, hypothyroidism, and chronic dysphagia presents with worsening weakness x 1 day. Patient is a poor historian and history was predominantly provided by his and daughter. Family member
reports that his overall health has been declining throughout the summer and that his weakness has also been progressively worsening. However, today he had difficulty standing up out of bed and was not able to take any steps, which is new for him.
He reports that he is unsure if he's more short of breath than usual. Denies chest pain or palpitations.
Medical History
Past Medical History
Past Medical History: Reports Other
Additional Past Medical History:
Chronic Hypoxic Failure
COPD
Chronic Sinus Bradycardia
Hypothyroidism
Chronic Dysphagia
Past Surgical History: Reports Other
Additional Past Surgical History:
Bilateral Hernia
Social History
Tobacco: Smoker (Less than 6 cigarettes per day)
Personal:
Living: With Family
Family History
Family History: Not pertinent
Allergies / Home Medications
Allergies reflects when Allergies were last updated in [employer].
Home Medications with original date entered in [employer]
Allergy/Medication List:
Allergies
Allergy/AdvReac Type Severity Reaction Status Date / Time
Sulfa (Sulfonamide Allergy childhood Verified 01/30/24 11:08
Antibiotics)
Home Medications
fluticasone fur. 100 mcg-umeclid 62.5 mcg-vilant 25 mcg inhalat.powder (Trelegy Ellipta) 1 inh inhalation R DAILY Lung/Breathing Issues 01/30/24
levothyroxine 137 mcg tablet (Synthroid) 137 mcg PO DAILY 03/22/24
mirtazapine 7.5 mg tablet 7.5 mg PO HS 03/22/24
Review of Systems
-
A 12 point ROS was completed and negative except as noted: Yes
Constitutional: Denies Fever or Chills
Respiratory: Denies Cough
Cardiac: Denies Chest Pain or Palpitations
Abdomen/GI: Denies Abdominal Pain, Nausea, Vomiting or Diarrhea
Physical Exam
Vital Signs
Vital Signs
Temp Pulse Resp BP Pulse Ox
98.0 F 51 18 107/73 95
03/22/24 14:53 03/22/24 15:45 03/22/24 15:45 03/22/24 14:53 03/22/24 15:15
Physical Exam
General: Comfortable and Conversant
HEENT: Anicteric, Moist mucous membranes and Oxygen (Nasal Cannula)
Respiratory: Clear and Non Labored Respirations
Cardiac: S1/S2 and Regular Rhythm
GI: Soft and Non Tender
Rectal: Deferred by Provider
Musculoskeletal: No Clubbing, No Cyanosis and No Edema
Skin: Warm and Dry
Neuro: Awake, Alert and Nonfocal/grossly intact
Psych: Calm and Other (Flat Affect)
Laboratory Results
-
03/22/24 13:44
03/22/24 13:44
Laboratory Results
Total Bilirubin 1.5 mg/dl (0.2-1.3) H 03/22/24 13:44
AST 31 U/L (17-59) 03/22/24 13:44
ALT 17 U/L (0-50) 03/22/24 13:44
Alkaline Phosphatase 46 U/L (38-126) 03/22/24 13:44
Troponin I < 0.012 ng/ml 03/22/24 13:44
Data Reviewed
-
Lab Data: Labs Reviewed by me
Impression/Plan
-
Progressive Weakness/Ambulatory Dysfunction
-Likely related to deconditioning
-Consult PT/OT
-Case Management involved for SNF placement
Chronic Bradycardia
-Heart stable compared to prior admission
Chronic Hypoxic Failure / COPD
-Continue Trelegy
-Continue supplemental oxygen with goal pulse ox 90-92%
Hypothyroidism
-TSH within normal range
-Continue levothyroxine
Chronic Dysphagia
-Continue IDDS4 (Pureed) with Thin Liquids
DVT proph: SCDs
Code Status: DNR
--- NOTE | 2024-03-22 18:30 | W.PN.UPDATE ---
Update Note
Progress Note Update
For billing purposes only
[2024-03-22 19:54] LABS: Folate 5.6 ng/ml (2.76-20); Vitamin B12 355 pg/ml (239-931)
--- NOTE | 2024-03-22 22:20 | PTCARENOTE ---
Receive the pt from ER. Pt alert oriented X3, forgetful @ times. Pt unable to walk, pulled over to his bed. Pt appears very frail. Pt oriented to the room, call grimaldo within reach, bed alarm placed for pt safety. Pt offers no complaint of pain, or
SOB. VSS (T=98, HR=55, RR=18, IB=314/77, SpO2=95% on 3L O2 NC). Pt made NPO as per protocol (IDDS-4 pureed). COMMUNICATIONS AGENT (Lokesh Packer) made aware, ordered NSS @ 60mL/hr. Will continue to monitor the pt.
[2024-03-22] MEDS: NSS 1000 IV (22:50)
[2024-03-23 04:08] LABS: Urine Albumin Negative (Neg - Trace); Urine Bilirubin 1+ (Negative); Urine Character Clear (Clear); Urine Color Amber; Urine Glucose Negative (Negative); Urine Ketone Trace (Negative); Urine Leukocyte Negative (Negative); Urine Nitrite Negative (Negative); Urine Occult Blood Negative (Negative); Urine Urobilinogen 1+ (Neg - 1+)
[2024-03-23] MEDS: SYNTHROID PO (05:27)
[2024-03-23] MEDS: SPIRIVA RESPIMAT 2.5 MCG 2 PUFF INH (07:25)
[2024-03-23] MEDS: SYMBICORT 80/4.5 MCG INHALER 2 PUFF INH ×2 (07:25→19:23)
[2024-03-23 07:30] VITALS: BP 118/74
[2024-03-23] MEDS: VITAMIN B-12 PO (08:50)
[2024-03-23] MEDS: NICODERM TRANSDERMAL 7 MG TRANSDERM (08:51)
[2024-03-23 09:27] LABS: Hemoglobin 12.7 g/dL (13.0-18.0); Mean Corp Hgb Conc. 35.3 g/dL (33.0-37.0); Mean Corpuscular Hgb 32.1 pg (27.0-31.0); Mean Corpuscular Volume 90.9 fL (80.0-94.0); Mean Platelet Volume 10.3 fL (7.4-10.4); Platelet Count 148 10^3/uL (130-400); Red Blood Cell Count 3.96 10^6/uL (4.70-6.10); Red Cell Dist. Width 14.3 % (11.5-14.5); White Blood Cell Count 7.8 10^3/uL (4.8-10.8)
[2024-03-23 09:43] LABS: Blood Urea Nitrogen 32 mg/dl (9-20); Calcium 10.2 mg/dl (8.4-10.2); Carbon Dioxide 24 mmol/L (22-30); Chloride 105 mmol/L (98-107); Estimated Creatinine Clearance 50 ml/min; Glucose 78 mg/dl (70-99); Potassium 3.9 mmol/L (3.5-5.1); Sodium 140 mmol/L (135-145); eGFR > 60.00
[2024-03-23 10:00] VITALS: BP 116/77; PULSE 48; O2SAT 94
[2024-03-23 10:05] VITALS: BP 116/77; PULSE 54; O2SAT 94
--- NOTE | 2024-03-23 11:55 | PTOTSP ---
Dysphagia Evaluation
Patient presents with signs concerning for moderate-severe oral stage dysphagia and possible pharyngeal dysphagia. Etiology unknown but contributing factors may include changes to cognition and severe COPD.
Video swallow study noted 01/31/2024 with limited acceptance at that time, oral stage differences (i.e., repetitive lingual rocking, delayed but functional anterior to posterior oral transfers), no pharyngeal dysphagia, no aspiration, and mild distal
esophageal retention.
Patient with occasional non-productive cough today in absence of PO and x1 with thin and x1 with puree. Cannot r/o aspiration vs COPD/smoker cough bedside. However, given no aspiration on recent video swallow study and CXR without PNA this
admission, lower suspicion for aspiration at this time.
Recommend:
1. IDDSI Level 4 Puree, IDDSI Level 0 Thin Liquids
2. Medications -crushed in puree if medically cleared to do so
3. Strategies: upright to 90 degrees, full supervision/assistance, PO only when alert, reduce distractions, small sips/bites, slow rate, ensure patient swallows before next sip/bite, oral care x3 daily
4. Consider registered dietitian consult
5. Dysphagia therapy at the acute care level pending C. If clinical signs concerning for worsened pharyngeal dysphagia or aspiration consider repeat video swallow study if aligned with goals of care.
--- NOTE | 2024-03-23 12:01 | CM ---
Patient seen in chair, initial assessment completed. Patient resides with his in a multiple story home, 7 steps to enter home, full flight of stairs to second floor (bedroom). Patient Reports occasionally his son and daughter in law stay with
him. Patient currently on O2, is not on home O2. Patient reports having a cane and walker at home. Patient history with [facility], denies SNF history. Patient PCP Robyn Saunders, pharmacy [facility] in [place].
CM received call from patients , Loraine ([phone]). CM reports at this time, [facility] can offer patient a bed. Per Hospitalist, patient not clear for discharge at this time, possibly over weekend. [facility] able to offer patient a
bed, check bed availability over weekend ([facility]: [phone]). Patient will require auth through [employer] [place] [employer]. [employer] form reviewed with over phone, placed in patients chart. CM will continue to follow for all discharge planning
needs.
Plan; SNF pending bed availability, will need insurance auth, when medically stable.
--- NOTE | 2024-03-23 12:16 | W.PN.HOSP.TC ---
Today's Communication/Plan
-
Monitor vital signs
see plan
PT/OT
Will need SNF
Speech evaluation
Assessment / Plan
Assessment / Plan
General: Comfortable and Conversant
HEENT: Anicteric, Moist mucous membranes and Oxygen (Nasal Cannula)
Respiratory: Clear and Non Labored Respirations
Cardiac: S1/S2 and Regular Rhythm
GI: Soft and Non Tender
Rectal: Deferred by Provider
Musculoskeletal: No Clubbing, No Cyanosis and No Edema
Skin: Warm and Dry
Neuro: Awake, Alert and Nonfocal/grossly intact
Psych: Calm and Other (Flat Affect)
Progressive Weakness/Ambulatory Dysfunction
-Likely related to deconditioning
-Consult PT/OT rec SNF
-Case Management involved for SNF placement
Chronic Bradycardia
-Heart stable compared to prior admission
Chronic Hypoxic Failure / COPD
-Continue Trelegy
-Continue supplemental oxygen with goal pulse ox 90-92%
Hypothyroidism
-TSH within normal range
-Continue levothyroxine
Chronic Dysphagia
Unclear etiology
-Continue IDDS4 (Pureed) with Thin Liquids
speech following; patient has refused management with past. Discussed following up with neurology on figuring out the cause of dysphagia however per spouse, patient is not interested
Family is looking for possible palliative transition if patient does not do well with physical therapy at rehab
Failure to thrive
Cachexia with severe protein calorie malnutrition
Ensure
BMI 15.7
DVT proph: SCDs
Code Status: DNR
Anticipated Discharge: Within 24 hours
Subjective/Interval History
-
Date of Service: March 23, 2024
denies pain
Objective Data
-
Labs:
Laboratory Results
03/23/24
09:01
WBC 7.8
Hgb 12.7 L
Hct 36.0 L
Plt Count 148
Sodium 140
Potassium 3.9
Chloride 105
Carbon Dioxide 24
BUN 32 H
Creatinine 0.8
Glucose 78
Calcium 10.2
Vital Signs:
Vital Signs
Temp Pulse Resp BP Pulse Ox
97.5 F 59 18 118/74 96
03/23/24 07:30 03/23/24 07:30 03/23/24 07:30 03/23/24 07:30 03/23/24 10:00
I&O
03/22/24 03/23/24 03/24/24
06:59 06:59 06:59
Intake Total 400 / 400
Output Total 85 / 85
Balance 315 / 315
[2024-03-23 15:08] VITALS: BP 138/86
[2024-03-23 16:06] VITALS: BMI 15.7
[2024-03-23] MEDS: NSS 1000 IV (16:08)
[2024-03-23] MEDS: LOVENOX 40 MG SC (17:03)
[2024-03-23 23:09] VITALS: BP 139/81
[2024-03-24] MEDS: SYNTHROID 137 MCG PO (05:40)
[2024-03-24 07:30] VITALS: BP 131/76
[2024-03-24] MEDS: SPIRIVA RESPIMAT 2.5 MCG 2 PUFF INH (08:02)
[2024-03-24] MEDS: SYMBICORT 80/4.5 MCG INHALER 2 PUFF INH ×2 (08:02→20:07)
[2024-03-24 08:34] LABS: Hematocrit 32.9 % (39.0-52.0); Hemoglobin 11.8 g/dL (13.0-18.0); Mean Corp Hgb Conc. 35.9 g/dL (33.0-37.0); Mean Corpuscular Hgb 33.3 pg (27.0-31.0); Mean Corpuscular Volume 92.9 fL (80.0-94.0); Mean Platelet Volume 10.1 fL (7.4-10.4); Platelet Count 123 10^3/uL (130-400); Red Blood Cell Count 3.54 10^6/uL (4.70-6.10); Red Cell Dist. Width 14.2 % (11.5-14.5); White Blood Cell Count 6.7 10^3/uL (4.8-10.8)
[2024-03-24 08:49] LABS: Blood Urea Nitrogen 34 mg/dl (9-20); Calcium 9.7 mg/dl (8.4-10.2); Carbon Dioxide 25 mmol/L (22-30); Chloride 106 mmol/L (98-107); Estimated Creatinine Clearance 50 ml/min; Glucose 81 mg/dl (70-99); Potassium 3.9 mmol/L (3.5-5.1); Sodium 139 mmol/L (135-145); eGFR > 60.00
[2024-03-24] MEDS: NICODERM TRANSDERMAL 7 MG TRANSDERM (09:15)
[2024-03-24] MEDS: VITAMIN B-12 1000 MCG PO (09:16)
[2024-03-24] MEDS: FLUSH (NSS) 1 FLUSH IV (09:18)
--- NOTE | 2024-03-24 10:32 | W.PN.HOSP.TC ---
Today's Communication/Plan
-
Monitor vital signs
see plan
Discharge planning, watch case polisher aware
Continue with dysphagia diet
Assessment / Plan
Assessment / Plan
General: Comfortable and Conversant
HEENT: Anicteric, Moist mucous membranes and Oxygen (Nasal Cannula)
Respiratory: Clear and Non Labored Respirations
Cardiac: S1/S2 and Regular Rhythm
GI: Soft and Non Tender
Musculoskeletal: No Edema
Neuro: Awake, Alert and Nonfocal/grossly intact
Psych: Calm and Other (Flat Affect)
Progressive Weakness/Ambulatory Dysfunction
-Likely related to deconditioning
-Consult PT/OT rec SNF
-Case Management involved for SNF placement
hold rameron
Chronic Bradycardia
-Heart stable compared to prior admission
Chronic Hypoxic Failure / COPD
on home o2, recently started
-Continue Trelegy
-Continue supplemental oxygen with goal pulse ox 90-92%
Thrombocytopenia
monitor
Hypothyroidism
-TSH within normal range
-Continue levothyroxine
Chronic Dysphagia
Unclear etiology
-Continue IDDS4 (Pureed) with Thin Liquids
speech following; patient has refused management with past. Discussed following up with neurology on figuring out the cause of dysphagia however per spouse, patient is not interested
Family is looking for possible palliative transition if patient does not do well with physical therapy at rehab
Failure to thrive
Cachexia with severe protein calorie malnutrition
Ensure
BMI 15.7
DVT proph: lovenox
Code Status: DNR
PT/OT recommending SNF, family still deciding.
Anticipated Discharge: Today
Subjective/Interval History
-
Date of Service: March 24, 2024
denies pain
Objective Data
-
Labs:
Laboratory Results
03/24/24
07:50
WBC 6.7
Hgb 11.8 L
Hct 32.9 L
Plt Count 123 L
Sodium 139
Potassium 3.9
Chloride 106
Carbon Dioxide 25
BUN 34 H
Creatinine 0.8
Glucose 81
Calcium 9.7
Vital Signs:
Vital Signs
Temp Pulse Resp BP Pulse Ox
97.9 F 50 16 131/76 96
03/24/24 07:30 03/24/24 08:06 03/24/24 08:06 03/24/24 07:30 03/24/24 09:12
I&O
03/23/24 03/24/24 03/25/24
06:59 06:59 06:59
Intake Total 400 / 400 1180 / 1180
Output Total 85 / 85 300 / 300
Balance 315 / 315 880 / 880
[2024-03-24 15:31] VITALS: BP 109/76
--- NOTE | 2024-03-24 15:58 | PTCARENOTE ---
Pt AAO x3; forgetful; speech soft; slow. KENNEDY slowly; OOB to chair with assist x2/walker; amos well. VSS. On nc 2 lpm-pulse ox 98%, pt with (+) slight COON but denies SOB. Abd soft, rounded, amos IDDI 4 diet; appetite poor; aspiration prec
maintained. Incont small am ts lt jenniffer urine. Resting in bed at present, no c/o. Will continue to monitor.
[2024-03-24] MEDS: LOVENOX 40 MG SC (17:22)
[2024-03-24 23:28] VITALS: BP 111/65
[2024-03-25] MEDS: SYNTHROID 137 MCG PO (05:36)
[2024-03-25] MEDS: SPIRIVA RESPIMAT 2.5 MCG 2 PUFF INH (08:00)
[2024-03-25] MEDS: SYMBICORT 80/4.5 MCG INHALER 2 PUFF INH ×2 (08:00→20:01)
[2024-03-25 08:21] VITALS: BP 115/73
[2024-03-25 08:26] LABS: Hematocrit 35.3 % (39.0-52.0); Hemoglobin 12.5 g/dL (13.0-18.0); Mean Corp Hgb Conc. 35.4 g/dL (33.0-37.0); Mean Corpuscular Hgb 33.1 pg (27.0-31.0); Mean Corpuscular Volume 93.4 fL (80.0-94.0); Mean Platelet Volume 10.7 fL (7.4-10.4); Platelet Count 146 10^3/uL (130-400); Red Blood Cell Count 3.78 10^6/uL (4.70-6.10); Red Cell Dist. Width 14.3 % (11.5-14.5); White Blood Cell Count 4.7 10^3/uL (4.8-10.8)
[2024-03-25] MEDS: VITAMIN B-12 1000 MCG PO (08:35)
[2024-03-25] MEDS: NICODERM TRANSDERMAL 7 MG TRANSDERM (08:35)
[2024-03-25 08:36] LABS: Blood Urea Nitrogen 33 mg/dl (9-20); Calcium 9.9 mg/dl (8.4-10.2); Carbon Dioxide 26 mmol/L (22-30); Chloride 104 mmol/L (98-107); Estimated Creatinine Clearance 57 ml/min; Glucose 81 mg/dl (70-99); Potassium 4.1 mmol/L (3.5-5.1); Sodium 138 mmol/L (135-145); eGFR > 60.00
--- NOTE | 2024-03-25 13:35 | W.PN.HOSP.TC ---
Addendum entered and electronically signed by River Morales MD 03/25/24 13:49:
83yo < with PMHx of hypothyroidism, COPD, smoking, chronic dysphagia so with poor oral intake came with worsening weakness. History provided by the family. As per them - progressive malaise started months ago. Was admitted with the same in January 2024
A/P:
#Generalized weakness
#Mild leukopenia
check AM cortisol
CT chest/abd /pelvis
Check Lyme, Syphilis, ESR, CRP, procalcitonin
Head CT
#COPD, not in exacerbation
cont bronchodilators
#Descending toracic aortic aneurism
Outpatient CT/MRI chest with PCP for monitoring
#Dysphagia, unspecified
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
cont dysphagia diet
#Hypothyroidism
TSH WNL
cont home meds
#Calorie malnutrition, cachexia
encourage oral intake
Ensure
I have spent at least 57min reviewing chart, test results, direct patient care
Original Note:
Today's Communication/Plan
-
see note
Assessment / Plan
Assessment / Plan
General: Comfortable and Conversant
HEENT: Anicteric, Moist mucous membranes and Oxygen (Nasal Cannula)
Respiratory: Clear and Non Labored Respirations
Cardiac: S1/S2 and Regular Rhythm
GI: Soft and Non Tender
Musculoskeletal: No Edema
Neuro: Awake, Alert and Nonfocal/grossly intact
Psych: Calm and Other (Flat Affect)
Progressive Weakness/Ambulatory Dysfunction
-Likely related to deconditioning
-Consult PT/OT rec SNF
-Case Management involved for SNF placement
hold rameron
Chronic Bradycardia
-Heart stable compared to prior admission
Chronic Hypoxic Failure / COPD
on home o2, recently started
-Continue Trelegy
-Continue supplemental oxygen with goal pulse ox 90-92%
Thrombocytopenia
monitor
Hypothyroidism
-TSH within normal range
-Continue levothyroxine
Chronic Dysphagia
Unclear etiology
-Continue IDDS4 (Pureed) with Thin Liquids
speech following; patient has refused management with past. Discussed following up with neurology on figuring out the cause of dysphagia however per spouse, patient is not interested
Family is looking for possible palliative transition if patient does not do well with physical therapy at rehab
Failure to [id number] < with PMHx of hypothyroidism, COPD, smoking, chronic dysphagia so with poor oral intake came with worsening weakness. History provided by the family. As per them - progressive malaise started months ago. Was admitted with the
same in January 2024
A/P:
#Generalized weakness
#Mild leukopenia
check AM cortisol
CT chest/abd /pelvis
Check Lyme, Syphilis, ESR, CRP, procalcitonin
Head CT
#COPD, not in exacerbation
cont bronchodilators
#Descending toracic aortic aneurism
Outpatient CT/MRI chest with PCP for monitoring
#Dysphagia, unspecified
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
cont dysphagia diet
Family leaning toward palliative approach if intake not improving
#Hypothyroidism
TSH WNL
cont home meds
#Calorie malnutrition, cachexia
encourage oral intake
Ensure
I have spent at least 57min reviewing chart, test results, direct patient care
Cachexia with severe protein calorie malnutrition
Ensure
BMI 15.7
DVT proph: lovenox
Code Status: DNR
PT/OT recommending SNF, family still deciding.
Anticipated Discharge: > 48 hours
Subjective/Interval History
-
Date of Service: March 25, 2024
Objective Data
-
Labs:
Laboratory Results
03/25/24
06:58
WBC 4.7 L
Hgb 12.5 L
Hct 35.3 L
Plt Count 146
Sodium 138
Potassium 4.1
Chloride 104
Carbon Dioxide 26
BUN 33 H
Creatinine 0.7
Glucose 81
Calcium 9.9
Vital Signs:
Vital Signs
Temp Pulse Resp BP Pulse Ox
97.5 F 52 18 115/73 98
03/25/24 08:21 03/25/24 08:21 03/25/24 08:21 03/25/24 08:21 03/25/24 08:21
I&O
03/24/24 03/25/24 03/26/24
06:59 06:59 06:59
Intake Total 1180 / 1180 780 / 780
Output Total 300 / 300
Balance 880 / 880 780 / 780
Review of Systems
-
History Source: Patient
All other systems: Reviewed and negative
Physical Exam
-
General: Comfortable and Cachectic
Respiratory: Clear to Auscultation
Cardiac: Regular Rhythm
GI: Soft, Nontender and Nondistended
Genito-urinary: No Costovertebral Tender
Musculoskeletal: No Clubbing, No Cyanosis and No Edema
Skin: Warm
Neuro: Awake, Alert, Oriented and AO x 3
Psych: Calm
[2024-03-25] MEDS: NSS 1000 IV (15:02)
[2024-03-25 15:55] LABS: COVID-19 Antigen Negative (Negative)
[2024-03-25] MEDS: OMNIPAQUE 50 ML PO (15:55)
[2024-03-25 16:20] VITALS: BP 112/72
[2024-03-25] MEDS: LOVENOX 40 MG SC (16:57)
--- NOTE | 2024-03-25 16:58 | CM ---
CM attempted to contact Roderick Moy (disaster response director) on Tuesday and Tuesday. Unable to reach anyone to assist with admission, likely until after the holiday.
--- NOTE | 2024-03-25 23:30 | PTCARENOTE ---
Angelica MONTEZ notified of results of CT Chest. Unaviancan ordered.
[2024-03-25 23:50] VITALS: BP 121/53
--- NOTE | 2024-03-26 01:04 | W.PN.UPDATE ---
Update Note
Progress Note Update
CT abd/ chest reports 'RLL consolidation with associated mucous plugging, likely representing bronchopneumonia with postobstructive component in the setting of aspiration. LLL with subsegmental ateletasis, superimposed pneumonia is possible.' Pt has
been afebrile thus far. Will start unasyn for aspiration empirically. Low threshold to dc if procal negative.
Also will start bowel regime as CT scan reports mod-large stool burden
[2024-03-26] MEDS: UNASYN IV ×4 (02:56→20:38)
[2024-03-26] MEDS: SYNTHROID 137 MCG PO (05:56)
[2024-03-26] MEDS: NSS 1000 IV (06:32)
[2024-03-26] MEDS: SYMBICORT 80/4.5 MCG INHALER 2 PUFF INH ×2 (07:18→19:45)
[2024-03-26] MEDS: SPIRIVA RESPIMAT 2.5 MCG 2 PUFF INH (07:18)
[2024-03-26 07:45] VITALS: BP 118/62
[2024-03-26] MEDS: VITAMIN B-12 1000 MCG PO (08:21)
[2024-03-26] MEDS: SENOKOT 8.6 MG PO (08:21)
[2024-03-26] MEDS: MIRALAX 17 GRAMS PO (08:21)
[2024-03-26] MEDS: NICODERM TRANSDERMAL 7 MG TRANSDERM (08:21)
[2024-03-26 08:24] LABS: % Basophils 0.5 % (0-2); % Eosinophils 0.2 % (0-6); % Immature Granulocytes 0.3 % (0-0.5); % Lymphocytes 15.3 % (20.5-51.1); % Neutrophils 74.7 % (42.2-75.2); Absolute Monocytes 0.6 10^3/uL (0.1-0.6); Hematocrit 33.9 % (39.0-52.0); Hemoglobin 12.1 g/dL (13.0-18.0); Mean Corp Hgb Conc. 35.7 g/dL (33.0-37.0); Mean Corpuscular Hgb 32.4 pg (27.0-31.0); Mean Corpuscular Volume 90.9 fL (80.0-94.0); Mean Platelet Volume 10.2 fL (7.4-10.4); Nucleated Red Blood Cells % 0 % (-); Platelet Count 165 10^3/uL (130-400); Red Blood Cell Count 3.73 10^6/uL (4.70-6.10); Red Cell Dist. Width 14.2 % (11.5-14.5); White Blood Cell Count 6.7 10^3/uL (4.8-10.8)
[2024-03-26 08:45] LABS: Procalcitonin 0.08 ng/ml (0.0-0.25)
[2024-03-26 08:55] LABS: ALT (SGPT) 14 U/L (0-50); AST (SGOT) 27 U/L (17-59); Albumin 3.2 g/dl (3.5-5.0); Alkaline Phosphatase 50 U/L (38-126); Blood Urea Nitrogen 25 mg/dl (9-20); Calcium 9.5 mg/dl (8.4-10.2); Carbon Dioxide 27 mmol/L (22-30); Chloride 105 mmol/L (98-107); Estimated Creatinine Clearance 57 ml/min; Glucose 83 mg/dl (70-99); Potassium 3.9 mmol/L (3.5-5.1); Sodium 139 mmol/L (135-145); Total Bilirubin 1.3 mg/dl (0.2-1.3); Total Protein 5.5 g/dl (6.3-8.2); eGFR > 60.00
[2024-03-26 09:30] LABS: Cortisol, Random 20.9 ug/dl
[2024-03-26 09:35] LABS: Erythrocyte Sed Rate 23 mm/hour (0-20)
--- NOTE | 2024-03-26 12:05 | W.PN.HOSP.TC ---
Today's Communication/Plan
-
SCAFFOLDING HELPER reeval
CM for STR
Again unable to reach over the phone
Assessment / Plan
Assessment / Plan
83yo with PMHx of hypothyroidism, COPD, smoking, chronic dysphagia so with poor oral intake came with worsening weakness. History provided by the family. As per them - progressive malaise started months ago. Was admitted with the same in January 2024.
Most likely progressive cachexia with weakness 2/2 chronic lung disease. Patient seems to be apropriate for palliative approach
A/P:
#Generalized weakness
#Mild leukopenia
AM cortisol WNL
CT chest/abd /pelvis - no other significant pathology
Check Lyme, Syphilis, ESR, CRP, procalcitonin
Head CT - no acute abnormality
#Aspiration pneumonia
2/2 dysphagia
SCAFFOLDING HELPER to follow
Unasyn
#Dementia with episodes of in-hospital delirium
Mostly at AM
#COPD, not in exacerbation
cont bronchodilators
#Descending toracic aortic aneurism
Outpatient CT/MRI chest with PCP for monitoring
#Dysphagia, unspecified
#Calorie malnutrition, cachexia
Most liekly 2/2 chronic lung disease
encourage oral intake
Ensure
Might eventually need alternative means of feeding, vs palliative approach that family was leaning towards
SCAFFOLDING HELPER
Had swallow study before - passed but barely
cont dysphagia diet
#Hypothyroidism
TSH WNL
cont home meds
#4.2 ascending aortic dilation
outpatient follow up with VascSx
#Hepatic cysts
#Simple L renal cyst
no follow up advised
#L3 compression Fx
no significant back pain
COnt PT/OT
I have spent at least 57min reviewing chart, test results, direct patient care
Anticipated Discharge: 24 - 48 hours
Subjective/Interval History
-
Date of Service: March 26, 2024
Objective Data
-
Labs:
Laboratory Results
03/26/24
08:04
WBC 6.7
Hgb 12.1 L
Hct 33.9 L
Plt Count 165
Sodium 139
Potassium 3.9
Chloride 105
Carbon Dioxide 27
BUN 25 H
Creatinine 0.7
Glucose 83
Calcium 9.5
Total Bilirubin 1.3
AST 27
ALT 14
Alkaline Phosphatase 50
Vital Signs:
Vital Signs
Temp Pulse Resp BP Pulse Ox
98.7 F 49 16 118/62 98
03/26/24 07:45 03/26/24 07:45 03/26/24 07:45 03/26/24 07:45 03/26/24 07:45
I&O
03/25/24 03/26/24 03/27/24
06:59 06:59 06:59
Intake Total 780 / 780 1200 / 1200
Balance 780 / 780 1200 / 1200
Review of Systems
-
History Source: Patient
All other systems: Reviewed and negative
Physical Exam
-
General: No Apparent Distress
HEENT: Normocephalic
Respiratory: Clear to Auscultation
Cardiac: Regular Rhythm
GI: Soft, Nontender and Nondistended
Skin: Warm
Psych: Calm
[2024-03-26 12:14] LABS: Lyme Antibody Screen, EIA Negative (Negative)
[2024-03-26 15:50] VITALS: BP 121/86
[2024-03-26] MEDS: LOVENOX 40 MG SC (17:14)
[2024-03-26] MEDS: SENOKOT PO (20:39)
[2024-03-26 23:44] VITALS: BP 146/77
[2024-03-27] MEDS: UNASYN IV ×2 (02:50→10:22)
[2024-03-27] MEDS: SYNTHROID PO (05:23)
[2024-03-27 07:55] VITALS: BP 127/72
[2024-03-27] MEDS: SPIRIVA RESPIMAT 2.5 MCG 2 PUFF INH (07:57)
[2024-03-27] MEDS: SYMBICORT 80/4.5 MCG INHALER 2 PUFF INH (07:57)
[2024-03-27 09:27] VITALS: BP 133/92; PULSE 52; O2SAT 96
[2024-03-27 09:29] VITALS: BP 133/92; PULSE 52; O2SAT 96
[2024-03-27] MEDS: NICODERM TRANSDERMAL 7 MG TRANSDERM (10:21)
[2024-03-27] MEDS: MIRALAX 17 GRAMS PO (10:21)
[2024-03-27] MEDS: SENOKOT PO (10:22)
[2024-03-27] MEDS: VITAMIN B-12 PO (10:23)
--- NOTE | 2024-03-27 10:55 | W.PN.HOSP.TC ---
Today's Communication/Plan
-
dc
Assessment / Plan
Assessment / Plan
83yo with PMHx of hypothyroidism, COPD, smoking, chronic dysphagia so with poor oral intake came with worsening weakness. History provided by the family. As per them - progressive malaise started months ago. Was admitted with the same in January 2024.
Most likely progressive cachexia with weakness 2/2 chronic lung disease. Patient seems to be appropriate for palliative approach and after detailed conversation family (daughter and ) bedside confirmed that they will attempt to get poatient to
hospice upon the d/c in view of progressive weakness, dysphagia and risk of recurrent aspirations. Medically stable to be d/c to rehab
A/P:
#Generalized weakness
#Mild leukopenia
AM cortisol WNL
CT chest/abd /pelvis - no other significant pathology
Check Lyme, Syphilis, ESR, CRP, procalcitonin
Head CT - no acute abnormality
#Acute hypoxic insufficiency 2/2 Aspiration pneumonia
2/2 dysphagia
FINANCIAL SECRETARY to follow
Unasyn
#Dementia with episodes of in-hospital delirium
Mostly at AM
#COPD, not in exacerbation
cont bronchodilators
#Descending toracic aortic aneurism
Outpatient CT/MRI chest with PCP for monitoring
#Dysphagia, unspecified, most likely 2/2 demetia, generalized weakness 2/2 poor intake and cachexia of chronic disease
#Calorie malnutrition, cachexia
Most liekly 2/2 chronic lung disease
encourage oral intake
Ensure
Might eventually need alternative means of feeding, vs palliative approach that family was leaning towards
FINANCIAL SECRETARY
Had swallow study before - passed but barely
cont dysphagia diet
#Hypothyroidism
TSH WNL
cont home meds
#4.2 ascending aortic dilation
outpatient follow up with VascSx
#Hepatic cysts
#Simple L renal cyst
no follow up advised
#L3 compression Fx
no significant back pain
COnt PT/OT
I have spent at least 36min reviewing chart, test results, direct patient care
Anticipated Discharge: Today
Subjective/Interval History
-
Date of Service: March 27, 2024
Objective Data
-
Vital Signs:
Vital Signs
Temp Pulse Resp BP Pulse Ox
97.3 F 68 15 127/72 97
03/27/24 07:55 03/27/24 07:57 03/27/24 07:57 03/27/24 07:55 03/27/24 07:57
I&O
03/26/24 03/27/24 03/28/24
06:59 06:59 06:59
Intake Total 1200 / 1200
Balance 1200 / 1200
Review of Systems
-
History Source: Patient
All other systems: Reviewed and negative
Physical Exam
-
General: No Apparent Distress
Respiratory: Clear to Auscultation
Cardiac: Regular Rhythm
GI: Soft
Psych: Calm and Apparent Dementia
--- NOTE | 2024-03-27 11:01 | W.DCSUMMARY ---
Discharge Summary
Discharge Data
Date of Admission: 03/22/24
Date of Discharge: 03/27/24
-
Pending Results: Yes
Additional Pending Results:
Syphilis serology
Hospital Course
83yo with PMHx of hypothyroidism, COPD, smoking, chronic dysphagia so with poor oral intake came with worsening weakness. History provided by the family. As per them - progressive malaise started months ago. Was admitted with the same in January 2024.
Most likely progressive cachexia with weakness 2/2 chronic lung disease. Patient seems to be appropriate for palliative approach and after detailed conversation family (daughter and ) bedside confirmed that they will attempt to get poatient to
hospice upon the d/c in view of progressive weakness, dysphagia and risk of recurrent aspirations. Medically stable to be d/c to rehab
I have spent at least 38min discharging the patient
Patient was managed for:
#Generalized weakness
#Mild leukopenia
#Acute hypoxic insufficiency 2/2 Aspiration pneumonia
#Dementia with episodes of in-hospital delirium
#COPD, not in exacerbation
#Descending toracic aortic aneurism
#Dysphagia, unspecified, most likely 2/2 demetia, generalized weakness 2/2 poor intake and cachexia of chronic disease
#Calorie malnutrition, cachexia
#Hypothyroidism
#4.2 ascending aortic dilation
#Hepatic cysts
#Simple L renal cyst
#L3 compression Fx
Discharge Plan
-
Patient Disposition: [facility]
Discharge Diagnosis/Procedures: Progressive weakness/ambulatory dysfunction secondary to deconditioning
COPD
Hypothyroidism
Chronic dysphagia
Failure to thrive
Diet: Other diet
Additional Diets: Pur�ed diet with thin liquids
Activity: As tolerated
Driving Restrictions: As prior to admission
Bathing Restrictions: None
Referrals:
Robyn Saunders MD [Family Provider] - in less than 1 week
Prescriptions:
New
acetaminophen 325 mg Tablet
650 mg PO Q4HPRN PRN (Reason: mild pain/ fever>100.5F) Qty: 0 0RF
cyanocobalamin (vitamin B-12) 1,000 mcg Tablet
1,000 mcg PO DAILY Qty: 0 0RF
nicotine 7 mg/24 hr Patch 24 Hour
7 mg transdermal DAILY Qty: 0 0RF
amoxicillin-pot clavulanate 875-125 mg tablet
1 tab PO Q12H Qty: 10 0RF
Continued
Trelegy Ellipta 100-62.5-25 mcg blister with device
1 inh INHALATION R DAILY
levothyroxine [Synthroid] 137 mcg Tablet
137 mcg PO DAILY
Discontinued
mirtazapine 7.5 mg Tablet
7.5 mg PO HS
Discharge Orders:
Discharge Patient (As Directed); Ordered 03/27/24
Ordered By: River Morales
Discharge Date and Time
Print Language: LITHUANIAN
--- NOTE | 2024-03-27 11:19 | CM ---
Addendum entered by Kiana Bean 03/27/24 11:51:
Ambulance transport scheduled for 1:30 p.m. [facility] aware of time. CM placed call to to discuss transport time. CM reviewed IMM with Loraine, verbally agreed, placed in chart.
Original Note:
CM spoke with Josselyn from [facility], able to accept patient. CM spoke with Yolanda from patients insurance, auth approved 9 days, 03/27-04/02, next review 04/02, call [phone] for review, auth #[id number]. Patient will need ambulance transport, awaiting
confirmation time. CM will update patients Loraine, once transport scheduled. CM will continue to follow for all discharge planning needs.
Plan; [facility], awaiting ambulance transport
[facility]
Report: [phone]
[2024-03-27 12:35] LABS: Syphilis/T. pallidum Ab Reflex Negative (Negative)
[2024-03-27 12:49] VITALS: BP 126/85
--- NOTE | 2024-03-28 15:07 | PN.CDI ---
Addendum entered and electronically signed by River Morales MD 03/28/24 15:38:
will keep current diagnosis
Original Note:
CDI
- -
CDI:
Physician Documentation Request
Admit Date: 03/27/24 10:55
Dear Doctor,
Please review the following and provide your response in the progress notes.
Clinical Indicators:
Documentation includes the diagnosis of malnutrition. Other clinical indicators are:
D/C Summary includes 'Calorie malnutrition, cachexia'
RD assessment on 03/26 states: 'Patient meets the ASPEN/AND criteria for Severe Protein Calorie Malnutrition as evidenced by >5% unintended weight loss in one month, </= 75% intake for greater than one month, severe SQ loss over rib cage, Moderate SQ
loss over orbitals, Severe muscle loss over clavicle and moderate muscle loss over temporals. '
To ensure the quality of the medical record, based on the above information and the recognized standards for malnutrition , could you please verify in your progress notes which of the following responses best reflects the patient's nutritional
status:
Severe Malnutrition
Other (please specify)
Unable to determine
[place] Criteria ([employer] Hospitalist 2017)
2 or more criteria must be present for either
non severe or severe malnutrition
Note that the criteria differs related to the
presence of an acute or chronic illness
Acute Illness Chronic Illness
Energy Intake Non Severe: <75% for >7 days Non Severe: <75% for >1 month
Severe: <50% for >5 days Severe: <75% for >1 month
Weight Loss Non Severe: 1-2% over 1 week Non Severe: 5% over 1 month
5% over 1 month 7.5% over 3 months
7.5% over 3 months 10% over 6 months
1 year N/A 20% over 1 year
Severe: >2% over 1 week Severe: >5% over 1 month
>5% over 1 month >7.5% over 3 months
>7.5% over 3 months >10% over 6 months
1 year N/A >20% over 1 year
Body Fat Non Severe: Mild Decrease Non Severe: Mild Loss
Severe: Moderate Decrease Severe: Severe Loss
Muscle Mass Non Severe: Mild Decrease Non Severe: Mild Loss
Severe: Moderate Decrease Severe: Severe Loss
Fluid Accumulation Non Severe: Mild Accumulation Non Severe: Mild Accumulation
Severe: Moderate to severe Severe: Moderate to severe
accumulation accumulation
Reduced Senior Laboratory Technician Strength Non Severe: N/A Non Severe: N/A
Severe: Measurably reduced Severe: Measurably reduced
Use of terms such as suspected, likely, concern for, or probable (associated with a specific diagnosis that is being evaluated, monitored, or treated as if it exists) are acceptable and can be coded in the inpatient setting, when documented at the
time of discharge.
Thank you,
Delmis JULIO, RN, CCDS
CDI Specialist
[phone]
Please use your independent medical judgment in providing your response.
== END 2024-03-27 13:35 | DRG 178 ==
LOC: 4 EAST ACU 10:55
PROVIDERS: Physician Assistant; ADMITTING PHYSICIAN Internal Medicine; ATTENDING PHYSICIAN Internal Medicine; EMERGENCY PHYSICIAN Student in an Organized Health Care Education/Training Program; FAMILY PHYSICIAN Internal Medicine
DX: J69.0 Pneumonitis due to inhalation of food and vomit (principal); E46 Unspecified protein-calorie malnutrition; R64 Cachexia; Z68.1 Body mass index [BMI] 19.9 or less, adult; F17.210 Nicotine dependence, cigarettes, uncomplicated; R62.7 Adult failure to thrive; J44.9 Chronic obstructive pulmonary disease, unspecified; R09.02 Hypoxemia; E03.9 Hypothyroidism, unspecified; Z66 Do not resuscitate; R06.89 Other abnormalities of breathing
CPT/HCPCS: 70450; 71046; 71260; 74177; 80048; 80053; 81003; 82533; 82607; 82746; 84145; 84443; 84484; 85025; 85027; 85652; 86140; 86618; 86780; 87811; 92526; 92610; 93005; 94640; 96360; 97167; 97530; 97535; 99285; Q9967